=== PATIENT | female | born 1945 | race Caucasian/White ===

== ENCOUNTER 2023-08-19 21:29 | Inpatient (IN) ==
[2023-08-19 22:36] LABS: Basophils # (auto) 0.05 K/uL (0.00-0.20); Basophils % (auto) 0.7 %; Eosinophils # (auto) 0.17 K/uL (0.00-0.50); Eosinophils % (auto) 2.2 %; Hematocrit (blood only) 43.2 % (37.0-47.0); Hemoglobin 14.1 g/dl (12.0-16.0); Immature Granulocytes # (auto) 0.02 K/uL (0.01-0.20); Immature Granulocytes % (auto) 0.3 %; Lymphocytes # (auto) 2.59 K/uL (1.20-3.40); Lymphocytes % (auto) 33.9 %; Mean Corpuscular Hemoglobin 31.6 pg (25.0-34.0); Mean Corpuscular Hgb Conc 32.6 g/dL (32.0-36.0); Mean Corpuscular Volume 96.9 fL (80.0-100.0); Mean Platelet Volume 11.2 fL (9.4-12.4); Monocytes # (auto) 0.44 K/uL (0.11-0.59); Monocytes % (auto) 5.8 %; Neutrophils # (auto) 4.36 K/uL (1.40-6.50); Neutrophils % (auto) 57.1 %; Platelet Count 229 K/uL (130-400); RDW Coefficient of Variation 14.1 % (11.5-14.5); RDW Standard Deviation 49.5 fL (36.4-46.3); Red Blood Count 4.46 M/uL (4.20-5.40); White Blood Count 7.63 K/ul (4.8-10.8)
[2023-08-19] MEDS: ONDANSETRON INJ 2 MG/ML 2 ML VIAL IV STA (22:37)
[2023-08-19 22:39] LABS: Albumin Globulin Ratio 1.7 (0.9-2); Albumin Level 4.4 gm/dl (3.4-5.0); BUN Creatinine Ratio 29.4 (10-20); Bilirubin,Total 0.3 mg/dl (0.2-1.0); Calcium 9.5 mg/dl (8.6-10.3); Creatinine Clr Calc Pharmacy 62.8 ml/min; Est GFR (African American) 95.8 ml/min; Est GFR (Non-African American) 82.6 ml/min; Globulin 2.6 gm/dl (2.5-4.0); Potassium 4.4 mmol/L (3.5-5.1)
[2023-08-19 22:57] LABS: Appearance Urine Cloudy (Clear); Bacteria Urine Automated 4+ (None Seen); Bilirubin Urine Negative (Negative); Blood Urine 1+ (Negative); Cast Urine Automated 0-2 /lpf (0-2); Color Urine Yellow; Epithelial Cell Urine Auto 0-2 /hpf (0-2); Glucose Urine UA Negative (Negative); Ketones Urine Negative (Negative); Leukocyte Esterase Urine Trace (Negative); Nitrite Urine Positive (Negative); Protein Urine Negative (Negative); RBC Urine Automated 0-2 /hpf (0-2); Specific Gravity Urine 1.022 (1.000-1.030); Urobilinogen Urine Negative (Negative); WBC Urine Automated 0-5 /hpf (0-5); pH Urine 5.5 (4.5-7.5)
[2023-08-19] MEDS: HYDROmorphone INJ 0.5 MG/0.5 ML SYR IV STA (23:27)
--- NOTE | 2023-08-19 23:29 | Emergency Department Note ---
Impression & Plan Acute cholecystitis, UTI (urinary tract infection) Admit to the [facility] and consult surgery ED Provider Note NAME: EMMA CAMPOS AGE: 78 SEX: Female INFORMANT: Patient ED PROVIDER(S): Mireya Reeves DO CHIEF COMPLAINT: Abdominal pain PLAN: Disposition: Admit to the [facility] MEDICAL DECISION MAKING: This is an 78-year-old female patient who is visiting the area for graduation who presents to the emergency department with a 1 hour history of right upper quadrant abdominal pain and flank pain associated with nausea. The patient has been having urinary symptoms for the past 5 days prior to coming to [facility] for family members graduation. She did not want to start antibiotics for UTI for fear of having the side effects of diarrhea. The right upper quadrant abdominal pain started just 1 hour before presentation to the ER. Patient has been having some chronic right-sided back pain over the past couple weeks for which she was scheduled to have an MRI of her back. Patient does take Xarelto for A-fib. Laboratory studies revealed no leukocytosis or anemia. Renal function and glucose were normal. LFTs were normal. Patient required IV Zofran and Dilaudid initially for pain management. She went on to receive IV Reglan for additional management of significant nausea. Initially patient underwent CT scan of the abdomen/pelvis because she had right upper quadrant pain and back pain. This showed evidence of acute cholelithiasis. Ultrasound of the right upper quadrant confirmed acute cholecystitis. Case was discussed with general surgery and then the [facility] for admission. Care/management discussed with: The patient and her Triage Nursing notes: Reviewed and agree with them. Vital Signs: reviewed and remarkable for hypertension Additional History obtained from: Her Chronic Medical/Social Conditions affecting care: Frequent UTIs; IBS Differential Diagnosis: Pyelonephritis, colitis, ulcerative disease, pancreatitis, cholecystitis Diagnostics, independently interpreted by me: Cardiac Monitoring: Normal sinus rhythm at a rate of 84 Imaging studies: CT scan of the abdomen/pelvis: As per stat rad Right upper quadrant ultrasound: As per stat rad HPI: 78 year old Female arrives for evaluation of right upper quadrant abdominal discomfort. Patient developed some nausea and right upper quadrant abdominal pain with radiation to her right flank. Patient has noticed some urinary symptoms over the past couple of days but otherwise has been in her usual state of health. PAST MEDICAL HISTORY: IBS, A-fib on Xarelto, TIA, UTIs, PAST SURGICAL HISTORY: Hysterectomy, SOCIAL HISTORY: Lives in the [facility] with her , very infrequent alcohol use, no tobacco use HOME MEDICATIONS: See list ALLERGIES: None VITALS: See Below PHYSICAL EXAMINATION: HEENT: Head - normocephalic and atraumatic. Pupils are equal, round, and reactive to light. Extraocular eye muscles are intact, and sclera are anicteric. Nose - moist nasal mucosa without discharge. Mouth - moist buccal mucosa. Oropharynx is nonerythematous and there is no tonsillar exudate or edema noted. Neck: Supple; no JVD, nuchal rigidity, cervical lymphadenopathy. Heart: Regular rate and rhythm. There is a normal S1 and S2 with no murmurs, clicks, or gallops appreciated. Lungs: Clear to auscultation bilaterally with no wheezes, rales, or rhonchi. Abdomen: Soft, mild tenderness to palpation in the right upper quadrant, nondistended, with good bowel sounds. There are no palpable pulsatile masses or hepatosplenomegaly. There is no guarding, rigidity, or rebound noted. Extremities: No evidence of cyanosis, clubbing, or edema. There are easily palpable peripheral pulses. Skin: warm and dry with good turgor and no rashes. Emergency department treatment: store stocker, IV Zofran, IV Dilaudid, IV Reglan, IV Rocephin Emergency department course: The patient was evaluated in room B-5. A complete history and physical was performed. IV lock was initiated and labs were drawn as above per protocol. The patient was given a dose of IV Zofran for nausea. An order was placed for continuous cardiac monitoring. The patient was in a normal sinus rhythm at a rate of 84. She was medicated with IV Dilaudid for the pain in her right upper quadrant. She went for CT scan of the abdomen/pelvis. Patient was medicated with a dose of IV Rocephin for her urinary tract infection. Upon returning from radiology, the patient continued to complain of nausea and was given a dose of IV Reglan. This did relieve some of the nausea. She went on to receive a right upper quadrant ultrasound which confirmed the diagnosis of acute cholecystitis. I spoke with general surgery who evaluated the patient and recommended admission to the hospitalist group Past Med/Surg History Social History Smoking Status: Never smoker Hx Alcohol Use: Yes Alcohol type: wine Hx Substance Use: No Preferred Language: Citizen Of [place] [employer] Press Operator Required: No Beliefs That Will Affect Care: None Current Living Situation: Spouse Other Information That Helps Us Care for You: No Feels Safe at Home: Yes Safety Concerns: Feels Safe At This Time Assistive Devices: Cane and Glasses Allergies Allergies Allergy/AdvReac Type Severity Reaction Status Date / Time No Known Allergies Allergy Unverified 08/20/23 01:42 Home Meds Home Medications Medication Instructions Recorded Confirmed alendronate 70 mg tablet 70 mg PO WK 08/20/23 08/20/23 atorvastatin 10 mg tablet 10 mg PO QAM 08/20/23 08/20/23 cholecalciferol (vitamin D3) 50 100 mcg PO QAM 08/20/23 08/20/23 mcg (2,000 unit) tablet (Vitamin D3) cyanocobalamin (vitamin B-12) 1,000 mcg PO QAM 08/20/23 08/20/23 1,000 mcg tablet (Vitamin B-12) cyclobenzaprine 10 mg tablet 5 - 10 mg PO .NIGHTLY PRN as 08/20/23 08/20/23 directed folic acid 1 mg tablet 1 mg PO QAM 08/20/23 08/20/23 ipratropium bromide 42 mcg (0.06 2 spray intranasal QAM 08/20/23 08/20/23 %) nasal spray melatonin 1 mg tablet 1 mg PO HS 08/20/23 08/20/23 methotrexate sodium 2.5 mg tablet 15 mg PO WK 08/20/23 08/20/23 prednisolone acetate 1 % eye 1 drp ophthalmic (eye) Q OTHER DAY 08/20/23 08/20/23 drops,suspension primidone 250 mg tablet 250 mg PO QPM 08/20/23 08/20/23 primidone 50 mg tablet 50 mg PO QAM 08/20/23 08/20/23 propranolol 80 mg capsule,24 80 mg PO QAM 08/20/23 08/20/23 hr,extended release rivaroxaban 20 mg tablet (Xarelto) 20 mg PO QPM 08/20/23 08/20/23 sertraline 100 mg tablet 100 mg PO QAM 08/20/23 08/20/23 Results & Data (ED) Vital Signs Vital Signs - 24 hr 08/19/23 23:40 08/19/23 23:49 08/19/23 23:50 Pulse Rate 79 Pulse Rate [Left Apical] 78 Pulse Rate from SpO2 Sensor 80 Respiratory Rate 23 14 Blood Pressure Blood Pressure [Right Arm] 171/92 H Blood Pressure Mean Blood Pressure Mean [Right Arm] 118 Pulse Oximetry 88 L 97 97 Oxygen Delivery Method Nasal Cannula Oxygen Flow Rate 0 2 Oxygen Flow Rate - Titration 2 Pulse Oximetry Post Tiitration 96 08/19/23 23:50 08/20/23 00:00 08/20/23 00:00 Pulse Rate 80 Pulse Rate [Left Apical] Pulse Rate from SpO2 Sensor Respiratory Rate 16 Blood Pressure 171/92 H 166/107 H Blood Pressure [Right Arm] Blood Pressure Mean 131 138 Blood Pressure Mean [Right Arm] Pulse Oximetry Oxygen Delivery Method Oxygen Flow Rate Oxygen Flow Rate - Titration Pulse Oximetry Post Tiitration 08/20/23 01:09 08/20/23 01:49 08/20/23 02:34 Pulse Rate 77 86 Pulse Rate [Left Apical] 82 Pulse Rate from SpO2 Sensor Respiratory Rate 16 17 Blood Pressure Blood Pressure [Right Arm] 177/112 H Blood Pressure Mean Blood Pressure Mean [Right Arm] 133 Pulse Oximetry 91 Oxygen Delivery Method Room Air Oxygen Flow Rate Oxygen Flow Rate - Titration Pulse Oximetry Post Tiitration 08/20/23 02:35 08/20/23 02:35 08/20/23 02:35 Pulse Rate 81 Pulse Rate [Left Apical] 81 Pulse Rate from SpO2 Sensor 81 Respiratory Rate 14 14 Blood Pressure 162/89 H Blood Pressure [Right Arm] 162/89 H Blood Pressure Mean 105 Blood Pressure Mean [Right Arm] 113 Pulse Oximetry 91 94 Oxygen Delivery Method Room Air Oxygen Flow Rate Oxygen Flow Rate - Titration Pulse Oximetry Post Tiitration 08/20/23 04:04 08/20/23 04:07 08/20/23 04:07 Pulse Rate 90 Pulse Rate [Left Apical] 89 Pulse Rate from SpO2 Sensor 91 H Respiratory Rate 19 20 Blood Pressure 161/85 H Blood Pressure [Right Arm] 161/85 H Blood Pressure Mean 111 Blood Pressure Mean [Right Arm] 110 Pulse Oximetry 97 95 Oxygen Delivery Method Room Air Oxygen Flow Rate Oxygen Flow Rate - Titration Pulse Oximetry Post Tiitration 08/20/23 04:07 Pulse Rate 89 Pulse Rate [Left Apical] Pulse Rate from SpO2 Sensor 89 Respiratory Rate 15 Blood Pressure Blood Pressure [Right Arm] Blood Pressure Mean Blood Pressure Mean [Right Arm] Pulse Oximetry 94 Oxygen Delivery Method Oxygen Flow Rate Oxygen Flow Rate - Titration Pulse Oximetry Post Tiitration Laboratory Data 08/20/23 05:51 08/20/23 05:51 Lab Results 08/19/23 08/19/23 Range/Units 21:47 21:58 WBC 7.63 (4.8-10.8) K/ul RBC 4.46 (4.20-5.40) M/uL Hgb 14.1 (12.0-16.0) g/dl Hct 43.2 (37.0-47.0) % MCV 96.9 (80.0-100.0) fL MCH 31.6 (25.0-34.0) pg MCHC 32.6 (32.0-36.0) g/dL RDW Std Deviation 49.5 H (36.4-46.3) fL RDW Coeff of Mega 14.1 (11.5-14.5) % Plt Count 229 (130-400) K/uL MPV 11.2 (9.4-12.4) fL Immature Gran % (Auto) 0.3 % Neut % (Auto) 57.1 % Lymph % (Auto) 33.9 % [place] % (Auto) 5.8 % Eos % (Auto) 2.2 % Baso % (Auto) 0.7 % Neut # (Auto) 4.36 (1.40-6.50) K/uL Lymph # (Auto) 2.59 (1.20-3.40) K/uL [place] # (Auto) 0.44 (0.11-0.59) K/uL Eos # (Auto) 0.17 (0.00-0.50) K/uL Baso # (Auto) 0.05 (0.00-0.20) K/uL Immature Gran # (Auto) 0.02 (0.01-0.20) K/uL Sodium 142 (136-145) mmol/L Potassium 4.4 (3.5-5.1) mmol/L Chloride 106 (98-107) mmol/L Carbon Dioxide 28 (21-32) mmol/L Anion Gap 8 (3-11) BUN 20 (6-23) mg/dl Creatinine 0.68 (0.6-1.2) mg/dl Est Cr Clr Drug Dosing 62.8 ml/min Est GFR ( Amer) 95.8 ml/min Est GFR (Non-Af Amer) 82.6 ml/min BUN/Creatinine Ratio 29.4 H (10-20) Glucose 96 (70-99(Fasting)) mg/dl Calcium 9.5 (8.6-10.3) mg/dl Total Bilirubin 0.3 (0.2-1.0) mg/dl AST 14 (13-39) U/L ALT 11 (7-52) U/L Alkaline Phosphatase 60 (34-104) U/L Total Protein 7.0 (6.0-8.3) gm/dl Albumin 4.4 (3.4-5.0) gm/dl Globulin 2.6 (2.5-4.0) gm/dl Albumin/Globulin Ratio 1.7 (0.9-2) Lipase 24 (11-82) U/L Urine Color Yellow Urine Appearance Cloudy A (Clear) Urine pH 5.5 (4.5-7.5) Ur Specific [place] 1.022 (1.000-1.030) Urine Protein Negative (Negative) Urine Glucose (UA) Negative (Negative) Urine Ketones Negative (Negative) Urine Blood 1+ H (Negative) Urine Nitrite Positive A (Negative) Urine Bilirubin Negative (Negative) Urine Urobilinogen Negative (Negative) Ur Leukocyte Esterase Trace H (Negative) Urine WBC (Auto) 0-5 (0-5) /hpf Urine RBC (Auto) 0-2 (0-2) /hpf U Hyaline Cast (Auto) 0-2 (0-2) /lpf U Epithel Cells (Auto) 0-2 (0-2) /hpf Urine Bacteria (Auto) 4+ H (None Seen) Administered Medications Hydromorphone HCl (Hydromorphone Inj 0.5 Mg/0.5 Ml Syr) 0.5 mg IV Q3H PRN PRN Reason: Pain (6,7,8,9,10) Stop: 09/03/23 05:18 Last Admin: 08/20/23 10:42 Dose: 0.5 mg Documented By: SWD Sodium Chloride (Nss) 1,000 mls @ 125 mls/hr IV .Q8H PJ Stop: 09/19/23 04:44 Last Admin: 08/20/23 17:22 Dose: 125 mls/hr Documented By: Admin: 08/20/23 17:09 Dose: Not Given Documented By: Infusion: 08/20/23 17:09 Dose: Infused Documented By: Admin: 08/20/23 05:06 Dose: 125 mls/hr Documented By: GUNJAN Acetaminophen ([facility]) 1,000 mg in 100 mls @ 400 mls/hr IV Q8H PJ Stop: 08/23/23 17:59 Last Infusion: 08/20/23 17:40 Dose: Infused Documented By: Admin: 08/20/23 17:22 Dose: 400 mls/hr Documented By: ANDREW Oxycodone HCl (Oxycodone Hcl Ir 5 Mg Tab (Immediate Release)) 5 mg PO Q6 PRN PRN Reason: Pain Stop: 09/03/23 17:02 Last Admin: 08/20/23 19:37 Dose: 5 mg Documented By: FERNANDA Discontinued Medications Bupivacaine HCl/Epinephrine Bitart (Bupivacaine/Epinephrine 0.5% Mpf 1:200,000 30 Ml Vial) Confirm Administered Dose 30 ml .ROUTE .STK-MED ONE Stop: 08/20/23 12:16 Last Admin: 08/20/23 15:21 Dose: 30 ml Documented By: ALIYA Hydromorphone HCl (Hydromorphone Inj 0.5 Mg/0.5 Ml Syr) 0.5 mg IV NOW STA Stop: 08/19/23 23:20 Last Admin: 08/19/23 23:27 Dose: 0.5 mg Documented By: GUNJAN Ceftriaxone Sodium (Rocephin) 1,000 mg in 50 mls @ 100 mls/hr IV NOW STA Stop: 08/20/23 04:57 Last Infusion: 08/20/23 05:42 Dose: Infused Documented By: Admin: 08/20/23 05:06 Dose: 100 mls/hr Documented By: GUNJAN Acetaminophen ([facility]) 1,000 mg in 100 mls @ 400 mls/hr IV NOW STA Stop: 08/20/23 06:28 Last Infusion: 08/20/23 06:46 Dose: Infused Documented By: Admin: 08/20/23 06:31 Dose: 400 mls/hr Documented By: RENETTA Cefazolin Sodium (Ancef 2000mg) 2,000 mg in 15 mls @ 3.75 mls/min IV ONCE ONE; Protocol Stop: 08/20/23 15:22 Last Admin: 08/20/23 15:05 Dose: 3.75 mls/min Documented By: [id number] Ioversol (Optiray 320 100ml) 94 ml IV ONCE ONE Stop: 08/19/23 23:35 Last Admin: 08/19/23 23:34 Dose: 94 ml Documented By: IFTIKHAR Metoclopramide HCl (Metoclopramide Hcl Inj 5 Mg/Ml 2 Ml Vial) 5 mg IV ONE ONE Stop: 08/20/23 02:52 Last Admin: 08/20/23 03:02 Dose: 5 mg Documented By: GUNJAN Ondansetron HCl (Ondansetron Inj 2 Mg/Ml 2 Ml Vial) 4 mg IV NOW STA Stop: 08/19/23 22:34 Last Admin: 08/19/23 22:37 Dose: 4 mg Documented By: STEVO Ondansetron HCl (Ondansetron Inj 2 Mg/Ml 2 Ml Vial) 4 mg IV NOW STA Stop: 08/20/23 01:00 Last Admin: 08/20/23 01:04 Dose: 4 mg Documented By: GUNJAN Discharge Plan Visit Data Chief Complaint: Abdominal Pain Stated Complaint: ABD PAIN ED Provider: Mireya Reeves Discharge Problem: Acute cholecystitis, UTI (urinary tract infection) Patient Disposition: Admitted As Inpatient Discharge Instructions Interventions: ED Discharge Assessment Last Done: 08/20/23 14:17 Discharge Problem: UTI (urinary tract infection) Qualifiers: Urinary tract infection type: site unspecified
[2023-08-19] MEDS: OPTIRAY 320 100ml IV ONE (23:34)
[2023-08-20] MEDS: ONDANSETRON INJ 2 MG/ML 2 ML VIAL IV STA (01:04)
--- NOTE | 2023-08-20 01:15 | CT Scan Report ---
Exam(s): CT ABDOMEN + PELVIS With Contrast IV Amt: 94ml opti 320 EXAM: CT Abdomen and Pelvis With Intravenous Contrast CLINICAL HISTORY: Reason for exam: eval for R pyelo and choley. TECHNIQUE: Axial computed tomography images of the abdomen and pelvis with intravenous contrast. Automated exposure control was utilized for the study. A dose lowering technique was utilized adhering to the principles of ALARA. CONTRAST: Patient received 94ml opti 320 of IV contrast COMPARISON: No relevant prior studies available. FINDINGS: Lung bases: Unremarkable. No mass. No consolidation. Heart: Cardiomegaly. ABDOMEN: Liver: Unremarkable. No mass. Gallbladder and bile ducts: Cholelithiasis. No ductal dilation. Pancreas: Unremarkable. No mass. No ductal dilation. Spleen: Unremarkable. No splenomegaly. Adrenals: Unremarkable. No mass. Kidneys and ureters: Unremarkable. No hydronephrosis or delayed nephrogram. Stomach and bowel: Diverticulosis, without acute diverticulitis. No small bowel obstruction. No free intraperitoneal air. PELVIS: Appendix: No findings to suggest acute appendicitis. Bladder: Decompressed urinary bladder. Reproductive: Unremarkable as visualized. ABDOMEN and PELVIS: Intraperitoneal space: Unremarkable. No free air. No significant fluid collection. Bones/joints: Degenerative changes of the spine. Lumbosacral fusion hardware at L4-S1. No acute fracture. No dislocation. Soft tissues: Unremarkable. Vasculature: Atherosclerotic changes of the aorta. No abdominal aortic aneurysm. Lymph nodes: Unremarkable. No enlarged lymph nodes. IMPRESSION: 1. No hydronephrosis or delayed nephrogram. 2. Cholelithiasis. 3. Diverticulosis, without acute diverticulitis. No small bowel obstruction. No free intraperitoneal air. Electronically signed by: Rickie Sutherland MD 08/20/23 01:14 AM
[2023-08-20] MEDS: METOCLOPRAMIDE HCL INJ 5 MG/ML 2 ML VIAL IV ONE (03:02)
--- NOTE | 2023-08-20 03:35 | Ultrasound Report ---
Exam(s): US GALLBLADDER EXAM: US Abdomen Limited, Gallbladder CLINICAL HISTORY: Reason for exam: RUQ pain. TECHNIQUE: Real-time ultrasound of the right upper quadrant with image documentation. COMPARISON: No relevant prior studies available. FINDINGS: Gallbladder: . Cholelithiasis with a gallstone in the gallbladder neck. Trace pericholecystic fluid. Gallbladder wall measures 2.6 mm. Common bile duct measures 8 mm which is within normal limits. Common bile duct: Unremarkable as visualized. No stones. No dilation. Pancreas: Unremarkable as visualized. IMPRESSION: Acute cholecystitis Electronically signed by: Charles Bryant MD 08/20/23 03:34 AM
--- NOTE | 2023-08-20 04:05 | Surgery Consultation ---
Date of Consultation August 20, 2023 Assessment & Plan (1) Acute cholecystitis: I discussed with the treating emergency room physician and the patient is being admitted on the hospitalist service. From surgery perspective we recommend proceeding as follows: Provide analgesics Provide antiemetics Provide IV fluid for hydration Initiate antibioticsthe treating physician in the emergency department has ordered Rocephin which should continue We will repeat laboratories this morning Hold patient's Xarelto in anticipation of required surgery We will check a preoperative chest x-ray Will keep the patient n.p.o. for the present time. I feel she would likely require cholecystectomy however the timing will be dependent on Dr. Dubon's review of this case as the patient does take Xarelto and would be preferable for her to be off this medication for several days to minimize the potential of s urgical bleeding Addendum: The preoperative chest x-ray was performed. This did not appear to demonstrate any evidence of pneumonia. as above. pt's pain under control. xarelto will be 48 hours off later today. discussed options/risks ( bleeding/infection/injury to other organs/bile duct injury or leak/dvt/pe/mi/cva etc...) questions answered. will proceed later today with jackie carson History of Present Illness Reason for Consultation: Cholecystitis History of Present Illness This is an 78-year-old female who is from the [place] area. She is in [place] for college graduation. On the evening of 08/20/2023 the patient developed right upper quadrant abdominal pain with radiation to her flank. She had some associated nausea and vomiting. She denies any fevers, shakes, or chills. She does not report any modifying factors to her pain. She notes that she has had prior abdominal surgery in the form of an open hysterectomy. The patient has additional medical problems including atrial fibrillation for which she takes Xarelto. Her most recent dose was her p.m. dose of Xarelto on 08/18/2023. In addition, the patient suffered a TIA "a few years ago" at which time she had difficulty speaking. She said that her symptoms lasted less than 24 hours and she has made a full recovery. In addition, the patient notes that she is currently being treated for urinary tract infection. At the present time she does not have any dysuria. She does note that she tends to get diarrhea when antibiotics are administered for such problems. Since arrival to the hospital the patient has had labs and imaging which I independently reviewed. Patient had a CT scan of the abdomen and pelvis. This study showed the patient had cholelithiasis with no biliary ductal dilatation. On this study it did not appear the patient had acute cholecystitis. There is no free intraperitoneal air noted there is no evidence of diverticulitis. There is no evidence of small bowel obstruction. No hydronephrosis was noted. This was followed up with a gallbladder ultrasound where patient was noted to have cholelithiasis with a gallstone in the gallbladder neck. There is trace pericholecystic fluid. Gallbladder wall was 2.6 mm in thickness. The common bile duct appeared to be normal without any evidence of choledocholithiasis. The interpreting radiologist felt that this represented acute cholecystitis. Labs included CBC were white blood cell count, hemoglobin, hematocrit, and platelet count were normal. Chemistry profile showed sodium and potassium along with the BUN and creatinine were normal. The patient's bilirubin, transaminases, alkaline phosphatase, and lipase were all normal. Patient did have a urinalysis which was positive for nitrites and had trace leukocyte Estrace along with 4+ bacteria. There is no pyuria on the study. Patient did have an EKG that showed normal sinus rhythm. There did not appear to be any changes indicative of acute ischemia. Concerning past medical history the patient is treated for atrial fibrillation and has a history of TIA as noted above. In addition the patient has chronic back pain and irritable bowel syndrome. Concerning past surgical history the patient has had an open hysterectomy as well as back surgery Concerning social history the patient does not smoke At the time of my interview the patient was resting comfortably in bed and she was in no distress. Allergies Allergy/AdvReac Type Severity Reaction Status Date / Time No Known Allergies Allergy Unverified 08/20/23 01:42 Home Medications Medication Instructions Recorded Confirmed Type alendronate 70 mg tablet 70 mg PO WK 08/20/23 08/20/23 History atorvastatin 10 mg tablet 10 mg PO QAM 08/20/23 08/20/23 History cholecalciferol (vitamin D3) 50 100 mcg PO QAM 08/20/23 08/20/23 History mcg (2,000 unit) tablet (Vitamin D3) cyanocobalamin (vitamin B-12) 1,000 mcg PO QAM 08/20/23 08/20/23 History 1,000 mcg tablet (Vitamin B-12) cyclobenzaprine 10 mg tablet 5 - 10 mg PO .NIGHTLY PRN as 08/20/23 08/20/23 History directed folic acid 1 mg tablet 1 mg PO QAM 08/20/23 08/20/23 History ipratropium bromide 42 mcg (0.06 2 spray intranasal QAM 08/20/23 08/20/23 History %) nasal spray melatonin 1 mg tablet 1 mg PO HS 08/20/23 08/20/23 History methotrexate sodium 2.5 mg tablet 15 mg PO WK 08/20/23 08/20/23 History prednisolone acetate 1 % eye 1 drp ophthalmic (eye) Q OTHER DAY 08/20/23 08/20/23 History drops,suspension primidone 250 mg tablet 250 mg PO QPM 08/20/23 08/20/23 History primidone 50 mg tablet 50 mg PO QAM 08/20/23 08/20/23 History propranolol 80 mg capsule,24 80 mg PO QAM 08/20/23 08/20/23 History hr,extended release rivaroxaban 20 mg tablet (Xarelto) 20 mg PO QPM 08/20/23 08/20/23 History sertraline 100 mg tablet 100 mg PO QAM 08/20/23 08/20/23 History Patient History Social History Smoking Status: Never smoker Hx Alcohol Use: Yes Alcohol type: wine Hx Substance Use: No Preferred Language: Rw[place]an Food Preparation Supervisor Required: No Beliefs That Will Affect Care: None Current Living Situation: Spouse Other Information That Helps Us Care for You: No Feels Safe at Home: Yes Safety Concerns: Feels Safe At This Time Assistive Devices: Cane and Glasses Review of Systems Constitutional: no fever and no chills Ear, Nose, Mouth, Throat: no ear pain Respiratory: no cough and no dyspnea Cardiovascular: no chest pain Gastrointestinal: as per Subjective / HPI Genitourinary: as per Subjective / HPI Musculoskeletal: + back pain (Chronic) Integumentary: no rash Neurologic: no localized weakness Physical Exam Constitutional: WD/WN, vitals as above Eyes: + anicteric sclerae; no conjunctival abn ormality ENMT: Ears: no hearing impairment and no external ear abnormality Mouth: no oropharynx abnormality Neck: trachea midline Respiratory: normal respiratory effort, lungs clear to auscultation Cardiovascular: Rate/Rhythm: regular rate and regular rhythm Heart Sounds: + murmur Gastrointestinal (Abdomen): Abdomen is soft and nonrigid. Bowel sounds are present. There is no rebound tenderness or guarding but patient did have pain with palpation in the right upper quadrant. Musculoskeletal: No calf tenderness Skin: no rashes Neurologic: moves all extremities Psychiatric: A+Ox3, euthymic affect Results & Data Vital Signs (Past 12 Hours) Vital Signs Temp Pulse Pulse Resp BP BP BP 08/20/23 02:35 81 14 162/89 H 08/20/23 01:49 77 08/20/23 01:09 82 16 177/112 H 08/19/23 23:50 78 14 171/92 H 08/19/23 23:40 08/19/23 23:00 84 14 182/85 H 08/19/23 22:31 84 23 205/98 H 08/19/23 21:47 77 08/19/23 21:45 82 20 217/115 H 08/19/23 21:32 36.4 C L 73 18 208/96 H Pulse Ox O2 Del Method O2 Flow Rate 08/20/23 02:35 91 Room Air 08/20/23 01:49 08/20/23 01:09 91 Room Air 08/19/23 23:50 97 Nasal Cannula 2 08/19/23 23:40 88 L 0 08/19/23 23:00 92 Room Air 08/19/23 22:31 96 Room Air 08/19/23 21:47 08/19/23 21:45 95 Room Air 08/19/23 21:32 98 Room Air PG Care Time/CCT Total # of Minutes Spent Total Time Spent with Patient: Total time spent is greater than 50% in coordination of care (as documented) at patient's floor/unit and/or counseling patient: Coding Level of Care Code 26668 INT INP/OBS CARE 75MIN Diagnoses Acute cholecystitis K81.0
--- NOTE | 2023-08-20 04:07 | History & Physical Report ---
Date of Service August 20, 2023 Assessment & Plan (1) Acute cholecystitis: Plan: -CBC, CMP, lipase, and bilirubin are all within normal limits. -CT abdomen showed cholelithiasis, right upper quadrant ultrasound showed acute cholecystitis. -Surgery consulted, will keep patient n.p.o. and Dr. Dubon will review case to see timing of cholecystectomy. -Dilaudid as needed for pain. -Ceftriaxone continued. -Antiemetics as needed -NSS at 125 mL an hour -Labs in the a.m. (2) UTI (urinary tract infection): Plan: -UA showing nitrates, leukocyte Estrace, and 4+ bacteria. -No current symptoms of UTI, though is on ceftriaxone as above for acute cholecystitis. (3) A-fib: Plan: -Hold Xarelto. -Will monitor on telemetry. (4) History of TIA (transient ischemic attack): Plan: -Holding home statin. (5) History of lumbar fusion: Plan: -Noted. She was supposed to have a MRI on Monday. (6) Essential tremor: Plan: -Holding home medications in anticipation of surgery. Plan Fluids: NSS @ 125ml/hr Nutrition: NPO Code status: Conditional DVT ppx: SCDs, holding home Xarelto Consults: Surgery Dispo: Telemetry History of Present Illness Chief Complaint: Acute cholecystitis Primary Care Provider: NO PCP Patient is an 78-year-old female from the [facility] who presents to the hospital with acute cholecystitis. Patient has a past medical history of A-fib on Xarelto, TIA, essential tremor, hysterectomy, lumbar fusion surgery. She came to the area for graduation. She states that she felt crummy last couple days and that Monday evening at 8 PM she started to have sharp right upper quadrant abdominal pain that radiated to her back. She also started to have some nausea. She vomited once in the ED. She denies any fevers, chills, or recent illness. Denies any dysuria. Her most recent dose of Xarelto was in the p.m. on 08/18/2023. In the ED: CBC, CMP, and lipase were all benign. UA showed nitrates, leukocyte esterase, and 4+ bacteria. CT abdomen pelvis showed cholelithiasis and diverticulosis without acute diverticulitis. Right upper quadrant ultrasound showed acute cholecystitis. Surgery was consulted, will evaluate for possible cholecystectomy this admission. Allergies Allergy/AdvReac Type Severity Reaction Status Date / Time No Known Allergies Allergy Unverified 08/20/23 01:42 Home Medications Medication Instructions Recorded Confirmed Type alendronate 70 mg tablet 70 mg PO WK 08/20/23 08/20/23 History atorvastatin 10 mg tablet 10 mg PO QAM 08/20/23 08/20/23 History cholecalciferol (vitamin D3) 50 100 mcg PO QAM 08/20/23 08/20/23 History mcg (2,000 unit) tablet (Vitamin D3) cyanocobalamin (vitamin B-12) 1,000 mcg PO QAM 08/20/23 08/20/23 History 1,000 mcg tablet (Vitamin B-12) cyclobenzaprine 10 mg tablet 5 - 10 mg PO .NIGHTLY PRN as 08/20/23 08/20/23 History directed folic acid 1 mg tablet 1 mg PO QAM 08/20/23 08/20/23 History ipratropium bromide 42 mcg (0.06 2 spray intranasal QAM 08/20/23 08/20/23 History %) nasal spray melatonin 1 mg tablet 1 mg PO HS 08/20/23 08/20/23 History methotrexate sodium 2.5 mg tablet 15 mg PO WK 08/20/23 08/20/23 History prednisolone acetate 1 % eye 1 drp ophthalmic (eye) Q OTHER DAY 08/20/23 08/20/23 History drops,suspension primidone 250 mg tablet 250 mg PO QPM 08/20/23 08/20/23 History primidone 50 mg tablet 50 mg PO QAM 08/20/23 08/20/23 History propranolol 80 mg capsule,24 80 mg PO QAM 08/20/23 08/20/23 History hr,extended release rivaroxaban 20 mg tablet (Xarelto) 20 mg PO QPM 08/20/23 08/20/23 History sertraline 100 mg tablet 100 mg PO QAM 08/20/23 08/20/23 History Past Med/Surg History Social History Smoking Status: Never smoker Hx Alcohol Use: Yes Alcohol type: wine Hx Substance Use: No Preferred Language: Grenadian Supervisor [employer] Required: No Beliefs That Will Affect Care: None Current Living Situation: Spouse Other Information That Helps Us Care for You: No Feels Safe at Home: Yes Safety Concerns: Feels Safe At This Time Assistive Devices: Cane and Glasses Review of Systems Review of Systems: All systems reviewed & are unremarkable except as noted in Subjective Physical Exam Physical Exam: Constitutional: well-appearing, no acute distress HEENT: NCAT, no conjunctival injection CV: regular rhythm, no murmur appreciated, extremities well-perfused, no LE edema Resp: CTABL, no wheezes/rales/rhonchi appreciated, no increased work of breathing GI: Soft, nondistended, right upper quadrant tenderness MSK: no gross deformities appreciated Skin: warm, dry, no rash appreciated Neuro: alert, oriented, no focal neurologic deficit appreciated Results & Data Results & Data Vital Signs (Past 12 Hours) Vital Signs Temp Pulse Pulse Resp BP BP BP 08/20/23 02:35 81 14 162/89 H 08/20/23 01:49 77 08/20/23 01:09 82 16 177/112 H 08/19/23 23:50 78 14 171/92 H 08/19/23 23:40 08/19/23 23:00 84 14 182/85 H 08/19/23 22:31 84 23 205/98 H 08/19/23 21:47 77 08/19/23 21:45 82 20 217/115 H 08/19/23 21:32 36.4 C L 73 18 208/96 H Pulse Ox O2 Del Method O2 Flow Rate 08/20/23 02:35 91 Room Air 08/20/23 01:49 08/20/23 01:09 91 Room Air 08/19/23 23:50 97 Nasal Cannula 2 08/19/23 23:40 88 L 0 08/19/23 23:00 92 Room Air 08/19/23 22:31 96 Room Air 08/19/23 21:47 08/19/23 21:45 95 Room Air 08/19/23 21:32 98 Room Air Supervising Physician Co-Signing Physician Notes Attending addendum: I have physically seen this patient, have supervised the medical residents activities, and agree with the H&P unless as otherwise noted. Assessment and Plan: Acute cholecystitis- Labs are within normal limits, however, CT scan and history are consistent with acute cholecystitis Surgery has seen the patient, and will likely undergo surgery later on the day today Last dose of Xarelto has been about 36 hours at this point If surgery is delayed, patient will need to go on heparin drip as a bridge Ceftriaxone 2 g IV daily Zofran 4 mg IV every 6 hours as needed NSS at 125 MLS per hour Urinary tract infection- Patient has had symptoms for about a week Follow urine culture and sensitivity Ceftriaxone IV as noted above Atrial fibrillation- Xarelto last dosing as noted above about 36 hours ago If surgery is delayed, patient will be placed on a heparin drip. Essential tremor- Resume propranolol postop Remaining orders and notations as noted
[2023-08-20] MEDS: cefTRIAXone SODIUM 1,000 MG/50 ML BAG IV STA (05:06)
[2023-08-20] MEDS: SODIUM CHLORIDE 0.9% 1,000 ML IV SCH (05:06)
[2023-08-20] MEDS ORDERED: METOCLOPRAMIDE HCL INJ 5 MG/ML 2 ML VIAL IV PRN (05:19)
[2023-08-20 06:30] LABS: Basophils # (auto) 0.04 K/uL (0.00-0.20); Basophils % (auto) 0.3 %; Eosinophils # (auto) 0.02 K/uL (0.00-0.50); Eosinophils % (auto) 0.2 %; Hematocrit (blood only) 42.6 % (37.0-47.0); Hemoglobin 14.1 g/dl (12.0-16.0); Immature Granulocytes # (auto) 0.06 K/uL (0.01-0.20); Immature Granulocytes % (auto) 0.5 %; Lymphocytes # (auto) 1.74 K/uL (1.20-3.40); Lymphocytes % (auto) 14.6 %; Mean Corpuscular Hemoglobin 31.5 pg (25.0-34.0); Mean Corpuscular Hgb Conc 33.1 g/dL (32.0-36.0); Mean Corpuscular Volume 95.3 fL (80.0-100.0); Mean Platelet Volume 10.7 fL (9.4-12.4); Monocytes # (auto) 0.54 K/uL (0.11-0.59); Monocytes % (auto) 4.5 %; Neutrophils # (auto) 9.53 K/uL (1.40-6.50); Neutrophils % (auto) 79.9 %; Platelet Count 237 K/uL (130-400); RDW Coefficient of Variation 13.8 % (11.5-14.5); RDW Standard Deviation 48.5 fL (36.4-46.3); Red Blood Count 4.47 M/uL (4.20-5.40); White Blood Count 11.93 K/ul (4.8-10.8)
[2023-08-20 06:31] LABS: Partial Thromboplastin Ratio 1.1; Partial Thromboplastin Time 30 Seconds (21-31); Prothrombin Time 10.9 Seconds (9.0-12.0)
[2023-08-20] MEDS: ACETAMINOPHEN 1,000 MG/100 ML VIAL IV STA (06:31)
[2023-08-20 06:41] LABS: Albumin Globulin Ratio 1.8 (0.9-2); Albumin Level 4.4 gm/dl (3.4-5.0); BUN Creatinine Ratio 24.6 (10-20); Bilirubin,Total 0.4 mg/dl (0.2-1.0); Creatinine Clr Calc Pharmacy 74.9 ml/min; Est GFR (African American) 101.5 ml/min; Est GFR (Non-African American) 87.6 ml/min; Globulin 2.5 gm/dl (2.5-4.0); Potassium 3.9 mmol/L (3.5-5.1); Total Protein 6.9 gm/dl (6.0-8.3)
--- NOTE | 2023-08-20 07:51 | XRay Report ---
XR chest 1V portable HISTORY: pre-op COMPARISON: None. FINDINGS: The lungs are clear. Cardiac silhouette is normal in size. No pleural effusions. No pneumot horax. IMPRESSION: No acute process. ACT 112: Negative or not required by law. Electronically signed by: Julien Fortune M.D. 08/20/2023 7:50 AM
[2023-08-20] MEDS: HYDROmorphone INJ 0.5 MG/0.5 ML SYR IV PRN (10:42)
--- NOTE | 2023-08-20 14:26 | Anesthesiology Consultation ---
Date of Service August 20, 2023 Assessment & Plan Chart Review Chart Review: Acceptable Risk for Surgery and Patient NOT seen in Pre Admission Testing Consults Requested none ASA ASA2 Proposed Anesthesia Anesthesia Type: General Risk / Benefits Reviewed With: PT / POA / Parent / Guardian, Accepts Plan and Informed Consent Obtained History Surgery Operation Date: 08/20/23 12:00 Proposed Procedures p Laparoscopic Cholecystectomy - Jeffry Dubon, DO Height/Weight Height: 5 ft 3 in Weight: 72.1 kg Allergies Allergy/AdvReac Type Severity Reaction Status Date / Time No Known Allergies Allergy Unverified 08/20/23 01:42 Medications Home Medications Medication Instructions Recorded Confirmed Last Taken alendronate 70 mg tablet 70 mg PO WK 08/20/23 08/20/23 08/13/23 atorvastatin 10 mg tablet 10 mg PO QAM 08/20/23 08/20/23 08/18/23 cholecalciferol (vitamin D3) 50 100 mcg PO QAM 08/20/23 08/20/23 08/18/23 mcg (2,000 unit) tablet (Vitamin D3) cyanocobalamin (vitamin B-12) 1,000 mcg PO QAM 08/20/23 08/20/23 08/18/23 1,000 mcg tablet (Vitamin B-12) cyclobenzaprine 10 mg tablet 5 - 10 mg PO .NIGHTLY PRN as 08/20/23 08/20/23 Unknown directed folic acid 1 mg tablet 1 mg PO QAM 08/20/23 08/20/23 08/18/23 ipratropium bromide 42 mcg (0.06 2 spray intranasal QA 08/20/23 08/20/23 08/18/23 %) nasal spray melatonin 1 mg tablet 1 mg PO HS 08/20/23 08/20/23 08/18/23 methotrexate sodium 2.5 mg tablet 15 mg PO WK 08/20/23 08/20/23 Unknown prednisolone acetate 1 % eye 1 drp ophthalmic (eye) Q OTHER DAY 08/20/23 08/20/23 08/18/23 drops,suspension primidone 250 mg tablet 250 mg PO QPM 08/20/23 08/20/23 08/18/23 primidone 50 mg tablet 50 mg PO QAM 08/20/23 08/20/23 08/18/23 propranolol 80 mg capsule,24 80 mg PO QAM 08/20/23 08/20/23 08/18/23 hr,extended release rivaroxaban 20 mg tablet (Xarelto) 20 mg PO QPM 08/20/23 08/20/23 08/18/23 sertraline 100 mg tablet 100 mg PO QAM 08/20/23 08/20/23 08/18/23 Active Medications Generic Name Dose Route Start Last Admin Trade Name Freq PRN Reason Stop Dose Admin Hydromorphone HCl 0.5 mg 08/20/23 05:19 08/20/23 10:42 Hydromorphone Inj 0.5 Mg/0.5 Ml Syr IV 09/03/23 05:18 0.5 mg Q3H PRN Administration Pain (6,7,8,9,10) Sodium Chloride 1,000 mls @ 125 mls/hr 08/20/23 04:45 08/20/23 05:06 Nss IV 09/19/23 04:44 125 mls/hr .Q8H PJ Administration NPO Date Last Intake of Fluids: 08/19/23 Time Last Intake of Fluids: 23:00 Date Last Intake of Solids: 08/19/23 Time Last Intake of Solids: 20:00 Exercise / Class Metabolic Activity II 4-5 Yardwork/Stairs/Walk up hill Past Anesthesia History No Hx of Anesthesia Complications and No Family Hx of Anesthesia Complications Social History Smoking Status: Never smoker Hx Alcohol Use: Yes Alcohol type: wine alcohol intake frequency: holidays/special occasions only Hx Substance Use: No Review of Systems ROS Unobtainable: All systems reviewed & are unremarkable except as noted in HPI & below Physical Exam Vital Signs Last Vital Signs Temp 36.6 C 08/20/23 06:38 Pulse 79 08/20/23 12:00 Resp 18 08/20/23 12:00 BP 164/90 H 08/20/23 12:00 Pulse Ox 96 08/20/23 12:00 O2 Del Method Room Air 08/20/23 06:15 O2 Flow Rate 2 08/19/23 23:50 ENMT Mouth: no TMJ abnormality Thyromental Distance: > or= 3.5 Finger Breadths Mallampati Class: II Neck normal visual inspection and trachea midline; neck extension not limited Respiratory normal respiratory effort Auscultation: lungs clear to auscultation bilaterally Cardiovascular Rate/Rhythm: regular rate and regular rhythm Heart Sounds: no murmur Musculoskeletal Spine: normal cervical ROM Extremities: full ROM of extremities Neurologic moves all extremities Psychiatric Orientation: alert and oriented x 3 Testing Laboratory Results 08/20/23 05:51 08/20/23 05:51 PT 10.9 Seconds (9.0-12.0) 08/20/23 05:51 INR 1.0 (0.9-1.1) 08/20/23 05:51 APTT 30 Seconds (21-31) 08/20/23 05:51 Urine Color Yellow 08/19/23 21:58 Urine Appearance Cloudy (Clear) A 08/19/23 21:58 Urine pH 5.5 (4.5-7.5) 08/19/23 21:58 Ur Specific [place] 1.022 (1.000-1.030) 08/19/23 21:58 Urine Protein Negative (Negative) 08/19/23 21:58 Urine Glucose (UA) Negative (Negative) 08/19/23 21:58 Urine Ketones Negative (Negative) 08/19/23 21:58 Urine Nitrite Positive (Negative) A 08/19/23 21:58 Ur Leukocyte Esterase Trace (Negative) H 08/19/23 21:58 Urine WBC (Auto) 0-5 /hpf (0-5) 08/19/23 21:58 Urine RBC (Auto) 0-2 /hpf (0-2) 08/19/23 21:58 U Hyaline Cast (Auto) 0-2 /lpf (0-2) 08/19/23 21:58 U Epithel Cells (Auto) 0-2 /hpf (0-2) 08/19/23 21:58 Urine Bacteria (Auto) 4+ (None Seen) H 08/19/23 21:58
[2023-08-20] MEDS ORDERED: ONDANSETRON INJ 2 MG/ML 2 ML VIAL IV PRN (14:29)
[2023-08-20] MEDS ORDERED: fentaNYL citrate PF 100 MCG/2 ML VIAL IV PRN (14:29)
[2023-08-20] MEDS ORDERED: ePHEDrine sulfate 50 MG/ML AMP IV PRN (14:29)
[2023-08-20] MEDS ORDERED: ATROPINE SULFATE 0.1 MG/ML 10ML SYR IV PRN (14:29)
[2023-08-20] MEDS ORDERED: LIDOCAINE 2% 2 ML VIAL/AMP(20MG/ML) INFIL ONE (14:37)
[2023-08-20] MEDS ORDERED: PROPOFOL IV EMULSION 10 MG/ML 20 ML VIAL IV ONE (14:37)
[2023-08-20] MEDS ORDERED: fentaNYL citrate PF 100 MCG/2 ML VIAL ONE ×2 (14:37→15:22)
[2023-08-20] MEDS ORDERED: ONDANSETRON INJ 2 MG/ML 2 ML VIAL ONE (14:37)
[2023-08-20] MEDS ORDERED: DEXAMETHASONE SOD INJ 4 MG/ML VIAL ONE (14:37)
[2023-08-20] MEDS ORDERED: SUGAMMADEX SODIUM 200 MG/2 ML VIAL IV ONE (14:37)
[2023-08-20] MEDS ORDERED: ceFAZolin 330 MG/ML 1 GM VIAL ONE (15:02)
[2023-08-20] MEDS ORDERED: ACETAMINOPHEN 1000 MG/100 ML IV IV ONE (15:02)
[2023-08-20] MEDS: ceFAZolin 2000MG 2,000 MG/15 ML SYR IV ONE (15:05)
[2023-08-20] MEDS: BUPIVACAINE/EPINEPHRINE 0.5% MPF 1:200,000 30 ML VIAL ONE (15:21)
--- NOTE | 2023-08-20 15:50 | Operative Report ---
PG Post Operative Report Pre & Post Diagnosis Operation Date: 08/20/23 12:00 Pre-Op Diagnosis: Acute cholecystitis Post-Op Diagnosis: Acute cholecystitis I identified the patient and participated in the time-out.: Yes Procedure Operation Date: 08/20/23 12:00 Actual Procedures p Laparoscopic Cholecystectomy(Not Applicable) - Jeffry Dubon DO Surgeon Jeffry Dubon DO Infantryman n/a Estimated Blood Loss 10 Findings Consistent with Post-Op Diagnosis Specimens gallbladder Description of Procedure After informed consent was obtained the patient was taken to the operating room and placed in the supine position. After successful intubation the abdomen was sterilely prepped and draped in usual fashion. A periumbilical incision was made with an 11 blade scalpel and carried down through the soft tissue using electrocautery. The anterior rectus fascia was opened using electrocautery and 2 #0 Vicryl stay sutures were placed. The peritoneum was elevated with hemostats and incised under direct vision using Metzenbaum scissors. A finger sweep was performed and a 12 mm Tristan trocar was placed. The abdomen was insuf flated to 18 mmHg. The laparoscope was inserted and the abdomen was examined in 360. The gallbladder was grossly inflammed, otherwise no gross abnormalities were identified. A subxiphoid 5 mm port and 2 right upper quadrant 5 mm ports were placed under direct vision. The patient was placed in a reverse Trendelenburg position and slightly airplaned to the left. The gallbladder was too inflamed to grasped with graspers. I therefore used a gallbladder needle to drain what would be white bile out of the gallbladder. Next, the gallbladder was grasped and elevated superiorly and laterally. A small hole was made in the gallbladder releasing some of the bowel into the right upper quadrant. This was immediately suctioned and irrigated out. A [place] dissector was used to take down adhesions around the neck of the gallbladder. The cystic duct was identified and skeletonized. It was clipped twice proximally and once distally and transected using a laparoscopic scissor. In similar fashion the cystic artery was identified and skeletonized clipped and divided. The gallbladder was removed from the gallbladder fossa with electrocautery. It was placed into an Endo Catch bag. Thorough irrigation was performed. At the end of the procedure there was adequate hemostasis and no evidence of any bile leaks. A final look around the abdomen showed no other abnormalities. The gallbladder and trochars were all removed and the abdomen was desufflated. The fascia of the camera port was closed using 0 Vicryl in a [id number] fashion. All the wounds were irrigated and closed using 4-0 Monocryl. Marcaine was injected around them for postoperative analgesia and skin glue used as a dressing. The patient was awaken extubated and transferred to recovery in stable condition. I attest to the content of the Intraoperative Record and any orders documented therein. Any exceptions are noted below.
--- NOTE | 2023-08-20 16:13 | Anesthesiology Progress Note ---
Date of Service August 20, 2023 Anesthesia Post Procedure Vital Signs Vital Signs: Temp Pulse Pulse Resp BP BP BP 08/20/23 12:00 79 18 164/90 H 08/20/23 10:00 75 16 159/88 H 08/20/23 08:00 79 13 08/20/23 07:19 81 08/20/23 06:38 36.6 C 08/20/23 06:15 08/20/23 06:00 89 22 08/20/23 05:00 95 H 16 08/20/23 05:00 167/93 H 08/20/23 05:00 92 H 16 167/93 H 08/20/23 04:07 89 15 08/20/23 04:07 161/85 H 08/20/23 04:07 89 20 161/85 H 08/20/23 04:04 90 19 08/20/23 02:35 81 14 08/20/23 02:35 162/89 H 08/20/23 02:35 81 14 162/89 H 08/20/23 02:34 86 17 08/20/23 01:49 77 08/20/23 01:09 82 16 177/112 H 08/20/23 00:00 80 16 08/20/23 00:00 166/107 H 08/19/23 23:50 171/92 H 08/19/23 23:50 78 14 171/92 H 08/19/23 23:49 79 23 08/19/23 23:40 08/19/23 23:00 84 14 182/85 H 08/19/23 22:31 84 23 205/98 H 08/19/23 22:30 205/98 H 08/19/23 22:30 76 17 08/19/23 22:00 198/98 H 08/19/23 22:00 75 16 08/19/23 21:58 83 19 08/19/23 21:58 196/86 H 08/19/23 21:58 196/86 H 08/19/23 21:52 74 14 08/19/23 21:52 206/97 H 08/19/23 21:47 77 21 08/19/23 21:47 77 08/19/23 21:45 82 20 217/115 H 08/19/23 21:32 36.4 C L 73 18 208/96 H Pulse Ox Pulse Ox O2 Del Method O2 Del Method O2 Flow Rate 08/20/23 12:00 96 08/20/23 10:00 96 08/20/23 08:00 08/20/23 07:19 08/20/23 06:38 08/20/23 06:15 96 Room Air 08/20/23 06:00 08/20/23 05:00 95 08/20/23 05:00 08/20/23 05:00 96 Room Air 08/20/23 04:07 94 08/20/23 04:07 08/20/23 04:07 95 Room Air 08/20/23 04:04 97 08/20/23 02:35 94 08/20/23 02:35 08/20/23 02:35 91 Room Air 08/20/23 02:34 08/20/23 01:49 08/20/23 01:09 91 Room Air 08/20/23 00:00 08/20/23 00:00 08/19/23 23:50 08/19/23 23:50 97 Nasal Cannula 2 08/19/23 23:49 97 08/19/23 23:40 88 L 0 08/19/23 23:00 92 Room Air 08/19/23 22:31 96 Room Air 08/19/23 22:30 08/19/23 22:30 95 08/19/23 22:00 08/19/23 22:00 95 08/19/23 21:58 95 08/19/23 21:58 08/19/23 21:58 08/19/23 21:52 97 08/19/23 21:52 08/19/23 21:47 95 08/19/23 21:47 08/19/23 21:45 95 Room Air 08/19/23 21:32 98 Room Air Pain Intensity Upper Abdomen: Pain Intensity: 10 Transfer of Care Handoff Completed per policy Notes Mental Status: alert / awake / arousable Patient Amnestic to Procedure: Yes Nausea / Vomiting: adequately controlled Pain: adequately controlled Airway Patency, RR, SpO2: stable & adequate BP & HR: stable & adequate Hydration State: stable & adequate Anesthetic Complications: no major complications apparent and Pt Satisfied with anesthetic care
[2023-08-20] MEDS: ACETAMINOPHEN 1,000 MG/100 ML VIAL IV SCH (17:22)
--- NOTE | 2023-08-20 19:31 | Billing Data ---
Date of Service August 20, 2023 Coding Level of Care Code 03487 INT INP/OBS CARE
[2023-08-20] MEDS: oxyCODONE HCL IR 5 MG TAB (IMMEDIATE RELEASE) PO PRN (19:37)
--- NOTE | 2023-08-20 22:49 | Electrocardiogram Report ---
Test Reason : Blood Pressure : / mmHG Vent. Rate : 073 BPM Atrial Rate : 073 BPM P-R Int : 164 ms QRS Dur : 084 ms QT Int : 362 ms P-R-T Axes : 081 -28 023 degrees QTc Int : 398 ms Normal sinus rhythm Nonspecific ST abnormality Borderline ECG No previous ECGs available Confirmed by Deo Lewis ([id number]) on 08/20/2023 10:49:38 PM Referred By: NO PCP Confirmed By:Deo Lewis
[2023-08-21] MEDS: cefTRIAXone SODIUM 2,000 MG/50 ML BAG IV SCH (06:02)
[2023-08-21 06:56] LABS: Basophils # (auto) 0.05 K/uL (0.00-0.20); Basophils % (auto) 0.4 %; Eosinophils # (auto) 0.01 K/uL (0.00-0.50); Eosinophils % (auto) 0.1 %; Hematocrit (blood only) 35.6 % (37.0-47.0); Hemoglobin 11.9 g/dl (12.0-16.0); Immature Granulocytes # (auto) 0.05 K/uL (0.01-0.20); Immature Granulocytes % (auto) 0.4 %; Lymphocytes % (auto) 13.1 %; Mean Corpuscular Hgb Conc 33.4 g/dL (32.0-36.0); Mean Corpuscular Volume 95.7 fL (80.0-100.0); Mean Platelet Volume 10.7 fL (9.4-12.4); Monocytes % (auto) 5.2 %; Neutrophils # (auto) 9.25 K/uL (1.40-6.50); Neutrophils % (auto) 80.8 %; Platelet Count 168 K/uL (130-400); RDW Standard Deviation 49.2 fL (36.4-46.3); Red Blood Count 3.72 M/uL (4.20-5.40); White Blood Count 11.46 K/ul (4.8-10.8)
[2023-08-21 07:02] LABS: Albumin Globulin Ratio 1.6 (0.9-2); Albumin Level 3.4 gm/dl (3.4-5.0); BUN Creatinine Ratio 16.3 (10-20); Bilirubin,Total 0.8 mg/dl (0.2-1.0); Calcium 7.6 mg/dl (8.6-10.3); Creatinine Clr Calc Pharmacy 87.1 ml/min; Est GFR (African American) 106.6 ml/min; Globulin 2.1 gm/dl (2.5-4.0); Potassium 3.4 mmol/L (3.5-5.1); Total Protein 5.5 gm/dl (6.0-8.3)
--- NOTE | 2023-08-21 08:54 | Surgery Progress Note ---
Date of Service August 21, 2023 Assessment & Plan (1) Acute cholecystitis: Plan: POD 1 ? gas trapping ambulate today. probably will not be ready for d/c. trial diet today. Admission and Anticipated Discharge Date Admission Date: August 20, 2023 Subjective pt having more pain than she expected. managing with pain meds Physical Exam Physical Exam: alert. nad abd: soft. expected tenderness Results & Data Vital Signs (Past 12 Hours) Vital Signs Temp Pulse Resp BP Pulse Ox O2 Del Method 08/21/23 07:16 37.4 C 99 H 18 128/69 92 Room Air 08/21/23 03:05 36.7 C 75 18 123/66 95 Room Air 08/20/23 22:24 36.8 C 103 H 18 148/82 H 94 Room Air PG Care Time/CCT Total # of Minutes Spent Total Time Spent with Patient: Total time spent is greater than 50% in coordination of care (as documented) at patient's floor/unit and/or counseling patient: Coding Level of Care Code 68370 Post Operative Follow-Up Diagnoses Acute cholecystitis K81.0
[2023-08-21] MEDS: POLYETHYLENE (MIRALAX) 17 GM PACK PO SCH (09:18)
[2023-08-21] MEDS: DOCUSATE SODIUM/SENNA 50/8.6MG TAB PO SCH (09:19)
[2023-08-21] MEDS: PROPRANOLOL HCL LA 80 MG CAPCR PO SCH (09:19)
[2023-08-21] MEDS: prednisoLONE acetate 1% OP SUSP 5 ML BTL OP SCH (14:30)
[2023-08-21] MEDS ORDERED: CYCLOBENZAPRINE HCL 5 MG TAB PO PRN (17:18)
[2023-08-21] MEDS: POTASSIUM CHLORIDE CRTAB 20 MEQ TABCR PO STA (17:32)
[2023-08-21] MEDS: MELATONIN 3 MG TAB PO SCH (20:33)
[2023-08-21] MEDS ORDERED: PRIMIDONE 250 MG TAB PO SCH (21:00)
[2023-08-21] MEDS: PRIMIDONE 50 MG TAB PO SCH (21:54)
--- NOTE | 2023-08-21 22:22 | Hospitalist Progress Note ---
Date of Service August 21, 2023 Assessment & Plan (1) Acute cholecystitis: Plan: -CBC, CMP, lipase, and bilirubin are all within normal limits. -CT abdomen showed cholelithiasis, right upper quadrant ultrasound showed acute cholecystitis. -Surgery consulted, s/p cholecystectomy. -Dilaudid as needed for pain. -Ceftriaxone continued. -Antiemetics as needed -wbc trending down -patient still with pain (2) UTI (urinary tract infection): Plan: -UA showing nitrates, leukocyte Estrace, and 4+ bacteria. -No current symptoms of UTI, though is on ceftriaxone as above for acute cholecystitis. (3) A-fib: Plan: -Hold Xarelto. -Will monitor on telemetry. (4) History of TIA (transient ischemic attack): Plan: -Holding home statin. (5) History of lumbar fusion: Plan: -Noted. She was supposed to have a MRI on Monday. (6) Essential tremor: Plan: -Holding home medications in anticipation of surgery. Plan Fluids: NSS @ 125ml/hr Nutrition: NPO Code status: Conditional DVT ppx: SCDs, holding home Xarelto Consults: Surgery Dispo: Telemetry Admission and Anticipated Discharge Date Admission Date: August 20, 2023 Subjective 78 yo female reports that she continues to have abdominal pain. Review of Systems Review of Systems: All systems reviewed & are unremarkable except as noted in HPI & below Physical Exam Physical Exam: Constitutional: well-appearing, no acute distress HEENT: NCAT, no conjunctival injection CV: regular rhythm, no murmur appreciated, extremities well-perfused, no LE edema Resp: CTABL, no wheezes/rales/rhonchi appreciated, no increased work of breathing GI: Soft, nondistended, right upper quadrant tenderness MSK: no gross deformities appreciated Skin: warm, dry, no rash appreciated Neuro: alert, oriented, no focal neurologic deficit appreciated Results & Data Results & Data Vital Signs (Past 12 Hours) Vital Signs Temp Pulse Pulse Resp BP BP Pulse Ox 08/21/23 21:58 36.7 C 104 H 18 131/77 91 08/21/23 19:56 36.8 C 76 16 104/59 L 95 08/21/23 16:00 76 08/21/23 15:01 37.2 C 78 18 109/66 96 08/21/23 11:26 36.7 C 81 18 114/67 95 O2 Del Method 08/21/23 21:58 Room Air 08/21/23 19:56 Room Air 08/21/23 16:00 08/21/23 15:01 Room Air 08/21/23 11:26 Room Air PG Care Time/CCT Total # of Minutes Spent Total Time Spent with Patient: Total time spent is greater than 50% in coordination of care (as documented) at patient's floor/unit and/or counseling patient: Coding Level of Care Code 91101 SUB INP/OBS CARE 2/35MIN Diagnoses Acute cholecystitis K81.0 UTI (urinary tract infection) N39.0 Urinary tract infection type: site unspecified A-fib I48.91 History of TIA (transient ischemic attack) Z86.73 History of lumbar fusion Z98.1 Essential tremor G25.0 (2) UTI (urinary tract infection) Urinary tract infection type: site unspecified
--- NOTE | 2023-08-21 23:06 | Communication Note ---
Date of Service: August 21, 2023 Notified by nursing that patient flipped from sinus rhythm to atrial fibrillation with RVR, HR ranging from 110-140s. She has a history of atrial fibrillation but has reportedly not been in afib for an extended period. She is typically on anticoagulation with Xarelto, but this is currently being held due to her surgery. I ordered a repeat BMP and a magnesium level, EKG obtained which showed afib with RVR. Blood pressure has remained stable (130s/80s), 5mg IV lopressor ordered due to sustained HR reaching >140, HR improved to 110s after administration. HR again increased to 140s+ later, an additional 5mg of IV lopressor was ordered in addition to electrolyte repletion with 20 of KCl and 2g mag sulfate.
[2023-08-21] MEDS: METOPROLOL TARTRATE 1 MG/ML VIAL IV STA (23:13)
[2023-08-22 00:05] LABS: BUN Creatinine Ratio 12.1 (10-20); Calcium 7.6 mg/dl (8.6-10.3); Creatinine Clr Calc Pharmacy 73.6 ml/min; Est GFR (African American) 100.9 ml/min; Est GFR (Non-African American) 87.1 ml/min; Magnesium 1.7 mg/dl (1.7-2.4); Potassium 3.8 mmol/L (3.5-5.1)
[2023-08-22] MEDS: POTASSIUM CHLORIDE CRTAB 20 MEQ TABCR PO STA (00:45)
[2023-08-22] MEDS: MAGNESIUM SULFATE / D5W 1 GM/100 ML BAG IV SCH (00:46)
[2023-08-22] MEDS: METOPROLOL TARTRATE 1 MG/ML VIAL IV STA (00:46)
[2023-08-22 06:51] LABS: Hematocrit (blood only) 32.3 % (37.0-47.0); Hemoglobin 10.5 g/dl (12.0-16.0); Mean Corpuscular Hemoglobin 32.2 pg (25.0-34.0); Mean Corpuscular Hgb Conc 32.5 g/dL (32.0-36.0); Mean Corpuscular Volume 99.1 fL (80.0-100.0); Mean Platelet Volume 11.1 fL (9.4-12.4); Platelet Count 174 K/uL (130-400); RDW Coefficient of Variation 14.5 % (11.5-14.5); RDW Standard Deviation 52.9 fL (36.4-46.3); Red Blood Count 3.26 M/uL (4.20-5.40); White Blood Count 9.25 K/ul (4.8-10.8)
[2023-08-22 07:08] LABS: Albumin Level 3.2 gm/dl (3.4-5.0); BUN Creatinine Ratio 12.7 (10-20); Bilirubin Direct 0.1 mg/dl (0-0.2); Bilirubin,Total 0.4 mg/dl (0.2-1.0); Calcium 7.4 mg/dl (8.6-10.3); Creatinine Clr Calc Pharmacy 78.7 ml/min; Est GFR (African American) 102.7 ml/min; Est GFR (Non-African American) 88.6 ml/min; Total Protein 5.4 gm/dl (6.0-8.3)
--- NOTE | 2023-08-22 08:23 | Surgery Progress Note ---
Date of Service August 22, 2023 Assessment & Plan (1) Acute cholecystitis: Plan: doing ok from my standpoint. hg dropped 1 gram...would hold xarelto until repeat H/H performed. Admission and Anticipated Discharge Date Admission Date: August 20, 2023 Subjective pt seen. still having some umb incision discomfort. no n/v. batsheva diet. Physical Exam Physical Exam: alert. nad abd: soft. expected tenderness. Results & Data Vital Signs (Past 12 Hours) Vital Signs Temp Pulse Pulse Resp BP BP Pulse Ox 08/22/23 07:24 37.2 C 80 18 125/74 91 08/22/23 02:36 37.6 C H 90 22 144/76 H 90 08/22/23 01:01 100 H 08/22/23 00:19 140 H 143/85 H 08/21/23 23:28 113 H 08/21/23 23:13 138 H 08/21/23 23:03 142 H 135/83 08/21/23 21:58 36.7 C 104 H 18 131/77 91 O2 Del Method 08/22/23 07:24 Room Air 08/22/23 02:36 Room Air 08/22/23 01:01 08/22/23 00:19 08/21/23 23:28 08/21/23 23:13 08/21/23 23:03 08/21/23 21:58 Room Air PG Care Time/CCT Total # of Minutes Spent Total Time Spent with Patient: Total time spent is greater than 50% in coordination of care (as documented) at patient's floor/unit and/or counseling patient: Coding Level of Care Code 80426 Post Operative Follow-Up Diagnoses Acute cholecystitis K81.0
[2023-08-22] MEDS: ONDANSETRON INJ 2 MG/ML 2 ML VIAL IV PRN (09:52)
[2023-08-22] MEDS: ATORVASTATIN 10 MG TAB PO SCH (09:59)
[2023-08-22] MEDS: SERTRALINE HCL 100 MG TABLET PO SCH (09:59)
[2023-08-22] MEDS: IPRATROPIUM BROMIDE NASAL SPRAY 0.06% 15ML NAE SCH (09:59)
[2023-08-22] MEDS: FOLIC ACID 1 MG TAB PO SCH (09:59)
[2023-08-22] MEDS: PRIMIDONE 50 MG TAB PO SCH (09:59)
--- NOTE | 2023-08-22 19:27 | XRay Report ---
XR chest 2V PA/lateral CLINICAL HISTORY: Hypoxia. COMPARISON STUDY: Chest radiograph August 20, 2023. FINDINGS: No pneumothorax. Trace bilateral pleural effusions are present. There is mild cardiomegaly. Mild interstitial thickening is noted with patchy bibasilar opacities. IMPRESSION: 1. Mild interstitial pulmonary edema with trace bilateral pleural effusions. 2. Patchy bibasilar opacities which could reflect atelectasis or less likely pneumonia. ACT 112: Negative or not required by law. Electronically signed by: Marck Marquez M.D. 08/22/2023 7:25 PM
--- NOTE | 2023-08-22 19:50 | CT Scan Report ---
CT OF THE ABDOMEN AND PELVIS WITHOUT CONTRAST CLINICAL HISTORY: Dropped hemoglobin. Status post laparoscopic cholecystectomy August 20, 2023. COMPARISON STUDY: CT of the abdomen and pelvis August 19, 2023 and right upper quadrant ultrasound August. TECHNIQUE: Axial images of the abdomen and pelvis were obtained without IV contrast. Images were revi ewed in the axial, sagittal, and coronal planes. Automated exposure control was utilized for the phi dy. A dose lowering technique was utilized adhering to the principles of ALARA. FINDINGS: There are trace bilateral pleural effusions. Mild interlobular septal thickening is noted. Lower lung opacities favor atelectasis. No pneumatosis or portal venous gas is present. Gas within th e anterior abdominal wall is postsurgical. There is no biliary ductal dilatation status post cholecys tectomy. Stranding within the operative bed is likely postsurgical. There is mild wall thickening of the proximal duodenum. This is also likely postsurgical. 2 mm left renal calculus is present. Water a ttenuation left renal lesion favors a cyst. There is no hydronephrosis. There is no evidence for a aleta wel obstruction. The spleen, adrenal glands and pancreas are unremarkable on unenhanced exam. Mild pr esacral stranding. The appendix is normal. No hyperdense fluid collection to suggest hematoma is pres ent. IMPRESSION: 1. Status post cholecystectomy. Operative bed stranding which is likely postsurgical. No well-defined fluid collection to suggest hematoma. No biliary ductal dilatation. 2. Abdominal wall gas which is postsurgical. 3. Trace bilateral pleural effusions. Mild interstitial pulmonary edema. Lower lung opacities which f avor atelectasis. ACT 112: Negative or not required by law. Electronically signed by: Marck Marquez M.D. 08/22/2023 7:48 PM
[2023-08-22] MEDS: BENZONATATE 100 MG CAPSULE PO PRN (22:20)
[2023-08-22] MEDS: PRIMIDONE 250 MG TAB PO SCH (22:21)
--- NOTE | 2023-08-22 22:56 | Hospitalist Progress Note ---
Date of Service August 22, 2023 Assessment & Plan (1) Acute cholecystitis: Plan: -CBC, CMP, lipase, and bilirubin are all within normal limits. -CT abdomen showed cholelithiasis, right upper quadrant ultrasound showed acute cholecystitis. -Surgery consulted, s/p cholecystectomy. -Dilaudid as needed for pain. -Ceftriaxone continued. -Antiemetics as needed -wbc trending down -patient still with pain Concern for anemia, ordered ct scan of abd. pelvis. No collection of hematoma. Given hypoxia, ordered chest xray. (2) UTI (urinary tract infection): Plan: -UA showing nitrates, leukocyte Estrace, and 4+ bacteria. -No current symptoms of UTI, though is on ceftriaxone as above for acute cholecystitis. (3) A-fib: Plan: Paroxysmal A. fib -Hold Xarelto. -Will monitor on telemetry. (4) History of TIA (transient ischemic attack): Plan: -resume home statin. (5) History of lumbar fusion: Plan: -Noted. She was supposed to have a MRI on Monday. (6) Essential tremor: Plan: -resumed home meds Plan Code status: Conditional DVT ppx: SCDs, holding home Xarelto Consults: Surgery Dispo: Telemetry Admission and Anticipated Discharge Date Admission Date: August 20, 2023 Subjective Patient reports she continues to have abdominal pain, but it is slightly better. Review of Systems Review of Systems: All systems reviewed & are unremarkable except as noted in HPI & below Physical Exam Physical Exam: Constitutional: well-appearing, no acute distress HEENT: NCAT, no conjunctival injection CV: regular rhythm, no murmur appreciated, extremities well-perfused, no LE edema Resp: CTABL, no wheezes/rales/rhonchi appreciated, no increased work of breathing GI: Soft, nondistended, right upper quadrant tenderness MSK: no gross deformities appreciated Skin: warm, dry, no rash appreciated Neuro: alert, oriented, no focal neurologic deficit appreciated Results & Data Results & Data Vital Signs (Past 12 Hours) Vital Signs Temp Pulse Pulse Resp BP Pulse Ox O2 Del Method 08/22/23 22:55 89 08/22/23 22:38 36.9 C 90 18 154/79 H 90 Nasal Cannula 08/22/23 20:35 Nasal Cannula 08/22/23 19:13 36.8 C 74 18 133/79 92 Nasal Cannula 08/22/23 15:06 37.1 C 82 19 138/74 92 Nasal Cannula 08/22/23 14:00 83 08/22/23 11:05 36.8 C 78 19 145/78 H 90 Room Air O2 Flow Rate 08/22/23 22:55 08/22/23 22:38 3 08/22/23 20:35 3 08/22/23 19:13 3 08/22/23 15:06 3 08/22/23 14:00 08/22/23 11:05 PG Care Time/CCT Total # of Minutes Spent Total Time Spent with Patient: Total time spent is greater than 50% in coordination of care (as documented) at patient's floor/unit and/or counseling patient: Coding Level of Care Code 39167 SUB INP/OBS CARE 2MIN Diagnoses Acute cholecystitis K81.0 UTI (urinary tract infection) N39.0 Urinary tract infection type: site unspecified A-fib I48.91 History of TIA (transient ischemic attack) Z86.73 History of lumbar fusion Z98.1 Essential tremor G25.0 (2) UTI (urinary tract infection) Urinary tract infection type: site unspecified
[2023-08-22] MEDS: ALBUT/IPRATROP 3MG/0.5MG NEB 3 ML VIAL ONE (23:37)
--- NOTE | 2023-08-23 | Communication Note ---
Date of Service: August 23, 2023 Notified by nursing that Leslie Vann had a dry/non-productive cough, ordered alfonzo rendon. Was later notifed that her cough had improved but she had an in creased oxygen requirement, was currently on 11L. She had a chest x-ray completed this afternoon due to hypoxia which showed "mild interstitial pulmonary edema with trace bilateral pleural effusions and patchy bibasilar opacities which could reflect atelectasis or less likely pneumonia". I went to bedside, patient was completing a breathing treatment at that time. Some wheezes and few rales appreciated. Upon chart review and after discussion with nursing, it was noted that she has received ongoing IVF since admission. Nursing paused the fluids at the time of her increased oxygen requirement, I discontinued the order for IV fluids. 20mg IV Lasix ordered due to concern of some element of fluid overload. Considering her recent surgery and history of atrial fibrillation (currently her home Xarelto is paused from her surgery), pulmonary embolism remains in the differential although with her HR remaining largely in the 90s I have a lower suspicion of PE at this time.
[2023-08-23] MEDS: FUROSEMIDE INJ 20 MG/2 ML VIAL IV ONE (00:06)
--- NOTE | 2023-08-23 05:05 | Electrocardiogram Report ---
Test Reason : Blood Pressure : / mmHG Vent. Rate : 118 BPM Atrial Rate : 115 BPM P-R Int : 000 ms QRS Dur : 078 ms QT Int : 304 ms P-R-T Axes : 000 -27 -09 degrees QTc Int : 426 ms Atrial fibrillation with rapid ventricular response Nonspecific ST abnormality Abnormal ECG When compared with ECG of 19-AUG-2023 21:53, Atrial fibrillation has replaced Sinus rhythm Vent. rate has increased BY 45 BPM Confirmed by Jimmy Hudson ([id number]) on 08/23/2023 5:05:18 AM Referred By: NO PCP Confirmed By:Jimmy Hudson
[2023-08-23 06:19] LABS: Basophils # (auto) 0.03 K/uL (0.00-0.20); Basophils % (auto) 0.3 %; Eosinophils # (auto) 0.18 K/uL (0.00-0.50); Eosinophils % (auto) 1.7 %; Hemoglobin 12.4 g/dl (12.0-16.0); Immature Granulocytes # (auto) 0.05 K/uL (0.01-0.20); Immature Granulocytes % (auto) 0.5 %; Lymphocytes # (auto) 1.29 K/uL (1.20-3.40); Lymphocytes % (auto) 12.3 %; Mean Corpuscular Hemoglobin 31.8 pg (25.0-34.0); Mean Corpuscular Hgb Conc 32.6 g/dL (32.0-36.0); Mean Corpuscular Volume 97.4 fL (80.0-100.0); Mean Platelet Volume 10.9 fL (9.4-12.4); Monocytes # (auto) 0.56 K/uL (0.11-0.59); Monocytes % (auto) 5.4 %; Neutrophils # (auto) 8.34 K/uL (1.40-6.50); Neutrophils % (auto) 79.8 %; Platelet Count 167 K/uL (130-400); White Blood Count 10.45 K/ul (4.8-10.8)
[2023-08-23 06:36] LABS: Albumin Level 3.5 gm/dl (3.4-5.0); BUN Creatinine Ratio 15.2 (10-20); Bilirubin Direct 0.1 mg/dl (0-0.2); Bilirubin,Total 0.5 mg/dl (0.2-1.0); Calcium 7.6 mg/dl (8.6-10.3); Creatinine Clr Calc Pharmacy 95.6 ml/min; Est GFR (African American) 108.9 ml/min; Potassium 3.4 mmol/L (3.5-5.1); Total Protein 6.1 gm/dl (6.0-8.3)
[2023-08-23] MEDS: POTASSIUM CHLORIDE CRTAB 20 MEQ TABCR PO STA (07:30)
[2023-08-23] MEDS: FUROSEMIDE 40 MG/4 ML VIAL IV ONE (07:30)
--- NOTE | 2023-08-23 09:39 | Hospitalist Progress Note ---
Date of Service August 23, 2023 Assessment & Plan (1) Acute hypoxic respiratory failure: Plan: developed acute hypoxic respiratory failure due to pulmonary edema, unknown EF, likely from ivf associated with surgery given lasix 08/21 and am of 08/22, dramatic improvement reduction in oxygen need. (2) A-fib: Plan: Paroxysmal A. fib patient with episode of tachycardia associate with uncontrolled A-fib. Initiated on diltiazem drip after 15 mg bolus. Good control of her heart rate but continues to be in atrial fibrillation. -surgery ok to resume Xarelto. Will consider on 08 23 or history of TIA also continues atorvastatin (3) Acute cholecystitis: Plan: -CT abdomen showed cholelithiasis, right upper quadrant ultrasound showed acute cholecystitis. -Surgery consulted, s/p cholecystectomy 08/20/23 -Ceftriaxone continued. Concern for anemia, ordered ct scan of abd. pelvis 07/23/23 no acute changes, pulmonary fluid overload suggested (4) UTI (urinary tract infection): Plan: -UA showing nitrates, leukocyte Estrace, and 4+ bacteria. grew E coli resistent to quinalonoes, -No current symptoms of UTI, though is on ceftriaxone as above for acute cholecystitis. Plan Atrial fibrillation delays discharge will control rate and recent to medications on 08/23 with consideration of discharge in the evening of 08 23 or depending on the resolution of the patient's hypoxemia Code status: Conditional chronic tremor h/o lumbar fusion Admission and Anticipated Discharge Date Admission Date: August 20, 2023 Subjective Patient was found to be in atrial fibrillation rapid ventricular response this morning. This was coupled with her being short of breath. Overnight she did develop hypoxia and a chest x-ray revealed pulmonary edema. Her ins and outs showed her to be markedly ahead with about 4.9 L of fluid and more than out. She was given Lasix x 2 started on a diltiazem drip and she regained good rate control in the 90s to 100s. She is able to have her oxygen titrated down to 2 L. She is accompanied by her family at bedside all questions were answered. Physical Exam Physical Exam: Upon my evaluation patient was awake alert and oriented. Cardiac exam is irregularly irregular and rapid. There were no murmurs Lungs decreased breath sounds at the bases few rales at the bases Abdomen was tender at the laparoscopic entrance sites but those wounds were slightly bruised but clean dry and intact Extremities without edema. Results & Data Results & Data Vital Signs (Past 12 Hours) Vital Signs Temp Pulse Pulse Resp BP Pulse Ox O2 Del Method 08/23/23 07:40 98.2 F 96 H 18 149/77 H 97 High Flow Nasal Cannula 08/23/23 07:00 96 H 08/23/23 07:00 Room Air 08/23/23 04:34 96 High Flow Nasal Cannula 08/23/23 02:31 98.4 F 95 H 20 162/86 H 97 Nasal Cannula 08/22/23 23:37 90 18 95 Nasal Cannula 08/22/23 22:55 89 08/22/23 22:38 98.4 F 90 18 154/79 H 90 Nasal Cannula O2 Flow Rate 08/23/23 07:40 6 08/23/23 07:00 08/23/23 07:00 6 08/23/23 04:34 6 08/23/23 02:31 11 08/22/23 23:37 11 08/22/23 22:55 08/22/23 22:38 3 Laboratory Results Reviewed chest x-ray reviewed chemistry reviewed CBC PG Care Time/CCT Total # of Minutes Spent Total Time Spent with Patient: Total time spent is greater than 50% in coordination of care (as documented) at patient's floor/unit and/or counseling patient: Coding Level of Care Code 91429 SUB INP/OBS CARE 3/50MIN Diagnoses Acute hypoxic respiratory failure J96.01 A-fib I48.91 Acute cholecystitis K81.0 UTI (urinary tract infection) N39.0 Urinary tract infection type: site unspecified (4) UTI (urinary tract infection) Urinary tract infection type: site unspecified
--- NOTE | 2023-08-23 09:44 | Surgery Progress Note ---
Date of Service August 23, 2023 Assessment & Plan (1) Acute cholecystitis: Plan: POD#3 lap yamileth WBC 10.4, Hbg 12.4 (10.5) Went into afib overnight and had increasing O2 requirement, CXR shows some mild pulmonary edema and b/l effusions along w/ atelectasis. She is receiving IV lasix Vomited yesterday and had hbg drop, therefore CT a/p obtained without any acute post surgical findings She may continue a diet as she tolerates. currently dealing with some mild [place] and low appetite that should improve with time Incisions c/d/i with some slight ecchymosis Will benefit from PT/OT once more medically stable Okay to resume xarelto from our standpoint Admission and Anticipated Discharge Date Admission Date: August 20, 2023 Subjective Patient's biggest complaint is feeling weak. Her abdominal pain is manageable. She has feelings of mild nausea and did vomit yesterday. She does not have much appetite. Currently trying crackers. Went into afib last night and currently denies CP/SOB. + flatus, no BMs Physical Exam Physical Exam: awake/alert, no distress Respiratory: normal respiratory effort on 6L nasal cannula Gastrointestinal (Abdomen): Inspection/Auscultation: + abdominal surgical incision (c/d/i, some ecchymosis of midline/belly incision); abdomen not distended Percussion/Palpation: + abdomen tender (expected hair incisional discomfort ) and abdomen soft Results & Data Vital Signs (Past 12 Hours) Vital Signs Temp Pulse Pulse Resp BP Pulse Ox O2 Del Method 08/23/23 07:40 98.2 F 96 H 18 149/77 H 97 High Flow Nasal Cannula 08/23/23 07:00 96 H 08/23/23 07:00 Room Air 08/23/23 04:34 96 High Flow Nasal Cannula 08/23/23 02:31 98.4 F 95 H 20 162/86 H 97 Nasal Cannula 08/22/23 23:37 90 18 95 Nasal Cannula 08/22/23 22:55 89 08/22/23 22:38 98.4 F 90 18 154/79 H 90 Nasal Cannula O2 Flow Rate 08/23/23 07:40 6 08/23/23 07:00 08/23/23 07:00 6 08/23/23 04:34 6 08/23/23 02:31 11 08/22/23 23:37 11 08/22/23 22:55 08/22/23 22:38 3 PG Care Time/CCT Total # of Minutes Spent Total Time Spent with Patient: Total time spent is greater than 50% in coordination of care (as documented) at patient's floor/unit and/or counseling patient: Coding Level of Care Code 89828 Post Operative Follow-Up Diagnoses Acute cholecystitis K81.0
[2023-08-23] MEDS ORDERED: STAT IV Infusion **Titration per Protocol STA (10:24)
[2023-08-23] MEDS: dilTIAZem HCL 125 MG in DEXTROSE 5% 100 ML IV SCH (10:39)
[2023-08-23] MEDS: dilTIAZem HCl 5 MG/ML 5 ML VIAL IV STA (10:42)
[2023-08-23] MEDS: HYDROmorphone INJ 0.5 MG/0.5 ML SYR IV PRN (23:19)
--- NOTE | 2023-08-24 05:33 | Communication Note ---
Date of Service: August 24, 2023 I was notified by nursing that Leslie Vann converted from atrial fibrillation to sinus rhythm earlier this evening. She was receiving a diltiazem drip at pre sent and vitals stable without bradycardia. I put in an order to start PO diltiazem at 9 a.m. as well as to hold the diltiazem drip at the same time. Further modifications of PO diltiazem will be deferred to daytime hospitalist.
--- NOTE | 2023-08-24 07:44 | Surgery Progress Note ---
Date of Service August 24, 2023 Assessment & Plan (1) Hx laparoscopic cholecystectomy: Plan: no issues from my standpoint. will continue to follow while in hospital d/c planning Admission and Anticipated Discharge Date Admission Date: August 20, 2023 Subjective doing ok. batsheva diet though not much appetite. is able to ambulate Physical Exam Physical Exam: alert. nad abd: soft. expected tenderness. incisions look good. Results & Data Vital Signs (Past 12 Hours) Vital Signs Temp Pulse Pulse Resp BP Pulse Ox O2 Del Method 08/24/23 07:33 36.8 C 76 16 119/70 94 Nasal Cannula 08/24/23 03:21 37.1 C 76 20 114/70 95 Nasal Cannula 08/23/23 23:34 37.2 C 86 22 131/81 94 Nasal Cannula 08/23/23 23:27 95 H 08/23/23 21:08 Nasal Cannula 08/23/23 19:50 37.1 C 91 H 22 113/74 96 Nasal Cannula O2 Flow Rate 08/24/23 07:33 1 08/24/23 03:21 1 08/23/23 23:34 1 08/23/23 23:27 08/23/23 21:08 2 08/23/23 19:50 6 PG Care Time/CCT Total # of Minutes Spent Total Time Spent with Patient: Total time spent is greater than 50% in coordination of care (as documented) at patient's floor/unit and/or counseling patient: Coding Level of Care Code 57670 Post Operative Follow-Up Diagnoses Hx laparoscopic cholecystectomy Z90.49
[2023-08-24] MEDS: PROPRANOLOL HCL LA 80 MG CAPCR PO SCH (08:32)
[2023-08-24] MEDS ORDERED: dilTIAZem HCL 30 MG TAB PO SCH (09:00)
[2023-08-24 10:31] LABS: Albumin Globulin Ratio 1.3 (0.9-2); Albumin Level 3.2 gm/dl (3.4-5.0); BUN Creatinine Ratio 25.5 (10-20); Bilirubin,Total 0.4 mg/dl (0.2-1.0); Creatinine Clr Calc Pharmacy 79.1 ml/min; Est GFR (African American) 102.7 ml/min; Est GFR (Non-African American) 88.6 ml/min; Globulin 2.4 gm/dl (2.5-4.0); Magnesium 1.9 mg/dl (1.7-2.4); Potassium 3.5 mmol/L (3.5-5.1); Total Protein 5.6 gm/dl (6.0-8.3)
[2023-08-24] MEDS: FUROSEMIDE INJ 20 MG/2 ML VIAL IV ONE (12:36)
[2023-08-24] MEDS: MAGNESIUM SULFATE / D5W 1 GM/100 ML BAG IV ONE (13:30)
[2023-08-24] MEDS: POTASSIUM CHLORIDE CRTAB 20 MEQ TABCR PO STA (13:30)
--- NOTE | 2023-08-24 16:06 | Hospitalist Progress Note ---
Date of Service August 24, 2023 Assessment & Plan (1) Acute hypoxic respiratory failure: Plan: developed acute hypoxic respiratory failure due to pulmonary edema, unknown EF, likely from ivf associated with surgery given lasix 08/21 and am of 08/22, dramatic improvement reduction in oxygen need. still with one liter required (2) A-fib: Plan: Paroxysmal A. fib patient with episode of tachycardia associate with uncontrolled A-fib. converted to nsr with diltiazem gtt and bolus -surgery ok to resume Xarelto. Will consider on start 08/24 will need discussion with pt and family history of TIA also continues atorvastatin (3) Acute cholecystitis: Plan: -CT abdomen showed cholelithiasis, right upper quadrant ultrasound showed acute cholecystitis. -Surgery consulted, s/p cholecystectomy 08/20/23 -Ceftriaxone continued. Concern for anemia, ordered ct scan of abd. pelvis 07/23/23 no acute changes, pulmonary fluid overload suggested (4) UTI (urinary tract infection): Plan: -UA showing nitrates, leukocyte Estrace, and 4+ bacteria. grew E coli resistent to quinalonoes, -No current symptoms of UTI, though is on ceftriaxone as above for acute cholecystitis. complete 5 days Plan discharge depending on the resolution of the patient's hypoxemia, pt is considering rehab at this point Code status: Conditional chronic tremor h/o lumbar fusion Admission and Anticipated Discharge Date Admission Date: August 20, 2023 Subjective pt has converted to NSR, remains with hypoxia, Physical Exam Physical Exam: Upon my evaluation patient was awake alert and oriented. Cardiac exam is now regular and rate controlled There were no murmurs Lungs decreased breath sounds at the bases few rales at the bases Abdomen was with nabs, soft Extremities without edema. Results & Data Results & Data Vital Signs (Past 12 Hours) Vital Signs Temp Pulse Resp BP Pulse Ox O2 Del Method O2 Flow Rate 08/24/23 15:02 97.5 F L 68 18 124/67 94 Nasal Cannula 1 08/24/23 11:21 98.4 F 74 20 115/60 96 Nasal Cannula 1 08/24/23 08:00 Nasal Cannula 1 08/24/23 07:33 98.2 F 76 16 119/70 94 Nasal Cannula 1 Laboratory Results review chemistry and lft PG Care Time/CCT Total # of Minutes Spent Total Time Spent with Patient: Total time spent is greater than 50% in coordination of care (as documented) at patient's floor/unit and/or counseling patient: Coding Level of Care Code 07696 SUB INP/OBS CARE 235MIN Diagnoses Acute hypoxic respiratory failure J96.01 A-fib I48.91 Acute cholecystitis K81.0 UTI (urinary tract infection) N39.0 Urinary tract infection type: site unspecified (4) UTI (urinary tract infection) Urinary tract infection type: site unspecified
[2023-08-25] MEDS: dilTIAZem HCL 30 MG TAB PO ONE (08:57)
[2023-08-25 13:32] LABS: Hematocrit (blood only) 35.9 % (37.0-47.0); Hemoglobin 12.3 g/dl (12.0-16.0); Mean Corpuscular Hgb Conc 34.3 g/dL (32.0-36.0); Mean Corpuscular Volume 93.5 fL (80.0-100.0); Mean Platelet Volume 10.6 fL (9.4-12.4); Platelet Count 238 K/uL (130-400); RDW Coefficient of Variation 14.1 % (11.5-14.5); Red Blood Count 3.84 M/uL (4.20-5.40)
[2023-08-25] MEDS: dilTIAZem HCL 120 MG CAPCR PO SCH (13:34)
[2023-08-25 13:53] LABS: Albumin Globulin Ratio 1.1 (0.9-2); Albumin Level 3.2 gm/dl (3.4-5.0); BUN Creatinine Ratio 23.5 (10-20); Bilirubin,Total 0.4 mg/dl (0.2-1.0); Calcium 8.7 mg/dl (8.6-10.3); Creatinine Clr Calc Pharmacy 85.6 ml/min; Est GFR (African American) 105.3 ml/min; Est GFR (Non-African American) 90.8 ml/min; Globulin 2.8 gm/dl (2.5-4.0); Potassium 3.4 mmol/L (3.5-5.1)
[2023-08-25] MEDS ORDERED: dilTIAZem HCL 120 MG CAPCR PO SCH (14:00)
--- NOTE | 2023-08-25 15:09 | Hospitalist Progress Note ---
Date of Service August 25, 2023 Assessment & Plan (1) Acute hypoxic respiratory failure: Plan: developed acute hypoxic respiratory failure due to pulmonary edema, unknown EF, likely from ivf associated with surgery consider acute diastolic heart failure due to paroxysmal afib also given lasix dramatic improvement reduction in oxygen need. still with one liter required (2) A-fib: Plan: Paroxysmal A. fib patient with episode of tachycardia associate with uncontrolled A-fib. converted to nsr with diltiazem gtt and bolus afib since recurred and now started on po diltiazem extended release -surgery ok to resume Xarelto. history of TIA also continues atorvastatin (3) Acute cholecystitis: Plan: -CT abdomen showed cholelithiasis, right upper quadrant ultrasound showed acute cholecystitis. -Surgery consulted, s/p cholecystectomy 08/20/23 some persistent pain, that plus afib rechecked labs on 08/24, no change in wbc and lft are ok, not suspecting bile leak or infection at this time to spur on afib -Ceftriaxone continued.( also for uti ) Concern for anemia, ordered ct scan of abd. pelvis 07/23/23 no acute changes, pulmonary fluid overload suggested (4) UTI (urinary tract infection): Plan: -UA showing nitrates, leukocyte Estrace, and 4+ bacteria. grew E coli resistent to quinalonoes, -No current symptoms of UTI, though is on ceftriaxone as above for acute cholecystitis. complete 5 days Plan discharge depending on the resolution of the patient's hypoxemia and rate controlled afib , pt is considering rehab at this point Code status: Conditional chronic tremor h/o lumbar fusion Admission and Anticipated Discharge Date Admission Date: August 20, 2023 Subjective returns to afib RVR, she did experience palpitations wtih this did have improvement once again with diltiazem Physical Exam Physical Exam: pt is weakened and fatigued rapid irregular heart rate lungs are clear abd is tender in RUQ Results & Data Results & Data Vital Signs (Past 12 Hours) Vital Signs Temp Pulse Resp BP Pulse Ox O2 Del Method O2 Flow Rate 08/25/23 14:26 Room Air 08/25/23 11:35 97.9 F 105 H 1 L 108/64 91 Nasal Cannula 1 08/25/23 07:09 98.1 F 99 H 18 129/70 96 Nasal Cannula 1 08/25/23 03:18 98.6 F 103 H 18 119/84 96 Nasal Cannula 1 08/25/23 03:06 Nasal Cannula 1 Laboratory Results reviewed cbc reviewed chemistry reviewed lfts started new medication for afib PG Care Time/CCT Total # of Minutes Spent Total Time Spent with Patient: Total time spent is greater than 50% in coordination of care (as documented) at patient's floor/unit and/or counseling patient: Coding Level of Care Code 38776 SUB INP/OBS CARE 3/50MIN Diagnoses Acute hypoxic respiratory failure J96.01 A-fib I48.91 Acute cholecystitis K81.0 UTI (urinary tract infection) N39.0 Urinary tract infection type: site unspecified (4) UTI (urinary tract infection) Urinary tract infection type: site unspecified
[2023-08-25] MEDS: POTASSIUM CHLORIDE / WTR 10 MEQ/100 ML PLCT IV SCH (16:26)
--- NOTE | 2023-08-25 17:21 | XCELERA ---
[id number]
[2023-08-25] MEDS: MELATONIN 3 MG TAB PO SCH (20:47)
[2023-08-25] MEDS: POTASSIUM CHLORIDE CRTAB 20 MEQ TABCR PO STA (20:57)
[2023-08-26 07:50] LABS: Anion Gap 5 (3-11); BUN Creatinine Ratio 20.4 (10-20); Blood Urea Nitrogen 10 mg/dl (6-23); Calcium 8.5 mg/dl (8.6-10.3); Carbon Dioxide 31 mmol/L (21-32); Chloride 102 mmol/L (98-107); Creatinine Clr Calc Pharmacy 88.6 ml/min; Est GFR (African American) 106.6 ml/min; Glucose 118 mg/dl (70-99(Fasting)); Sodium 138 mmol/L (136-145)
[2023-08-26] MEDS: RIVAROXABAN 20 MG TAB PO SCH (08:37)
--- NOTE | 2023-08-26 16:26 | Discharge Summary ---
Discharge Summary Date of Service August 26, 2023 Notes For Next Care Provider Patient insisted on a new medication (diltiazem 120) to help control her intermittent atrial fibrillation. She has recovered well from cholecystectomy tolerating her diet having very little pain control. She did have a postoperative CT scan which now concern for infection or bile leak. Laboratories also did not suggest any bile leak. Her etcher photoengraving is Dr. Patel was contacted and the office is aware that she is an additional medication for atrial fibrillation rate control Admission HPI Per Admitting Provider Patient is an 78-year-old female from the [facility] who presents to the hospital with acute cholecystitis. Patient has a past medical history of A-fib on Xarelto, TIA, essential tremor, hysterectomy, lumbar fusion surgery. She came to the area for graduation. She states that she felt crummy last couple days and that Monday evening at 8 PM she started to have sharp right upper quadrant abdominal pain that radiated to her back. She also started to have some nausea. She vomited once in the ED. She denies any fevers, chills, or recent illness. Denies any dysuria. Her most recent dose of Xarelto was in the p.m. on 08/18/2023. In the ED: CBC, CMP, and lipase were all benign. UA showed nitrates, leukocyte esterase, and 4+ bacteria. CT abdomen pelvis showed cholelithiasis and diverticulosis without acute diverticulitis. Right upper quadrant ultrasound showed acute cholecystitis. Surgery was consulted, will evaluate for possible cholecystectomy this admission. Principal Dx & Hospital Course #1 = Principal Diagnosis (1) Acute hypoxic respiratory failure: developed acute hypoxic respiratory failure due to pulmonary edema, unknown EF, likely from ivf associated with surgery consider acute diastolic heart failure due to paroxysmal afib also given lasix dramatic improvement reduction in oxygen need. Able to be tapered off oxygen and will be discharged without oxygen requirement (2) A-fib: Paroxysmal A. fib patient with episode of tachycardia associate with uncontrolled A-fib. afib has been recurrent and now started on po diltiazem extended release with good rate control, 120mg will be continued at time of discharge She has not converted to normal sinus rhythm at this time. -surgery ok to resume Xarelto. history of TIA also continues atorvastatin (3) Acute cholecystitis: -CT abdomen showed cholelithiasis, right upper quadrant ultrasound showed acute cholecystitis. -Surgery consulted, s/p cholecystectomy 08/20/23 some persistent pain, that plus afib rechecked labs on 08/24, no change in wbc and lft are ok, not suspecting bile leak or infection at this time to spur on afib -Ceftriaxone completed (also for uti ) Concern for anemia, ordered ct scan of abd. pelvis 07/23/23 no acute changes, pulmonary fluid overload suggested (4) UTI (urinary tract infection): -UA showing nitrates, leukocyte Estrace, and 4+ bacteria. grew E coli resistent to quinalonoes, -No current symptoms of UTI, though is on ceftriaxone as above for acute cholecystitis. complete 5 days Plan Patient was offered rehab stay at a local rehab family elected to take the [facility] area Code status: Conditional chronic tremor h/o lumbar fusion Discharge Exam Awake alert appropriate. Looking and feeling much better. Cardiac rate is controlled in the 80s and 90s but remains in A-fib and is irregular no murmurs are heard Lungs are clear without wheezes or crackles Abdomen still with some minor right upper quadrant tenderness Updated Medication List Medication Instructions Recorded Confirmed Type alendronate 70 mg tablet 70 mg PO WK 08/20/23 08/20/23 History atorvastatin 10 mg tablet 10 mg PO QAM 08/20/23 08/20/23 History cholecalciferol (vitamin D3) 50 100 mcg PO QAM 08/20/23 08/20/23 History mcg (2,000 unit) tablet (Vitamin D3) cyanocobalamin (vitamin B-12) 1,000 mcg PO QAM 08/20/23 08/20/23 History 1,000 mcg tablet (Vitamin B-12) cyclobenzaprine 10 mg tablet 5 - 10 mg PO .NIGHTLY PRN as 08/20/23 08/20/23 History directed folic acid 1 mg tablet 1 mg PO QAM 08/20/23 08/20/23 History ipratropium bromide 42 mcg (0.06 2 spray intranasal QAM 08/20/23 08/20/23 History %) nasal spray melatonin 1 mg tablet 1 mg PO HS 08/20/23 08/20/23 History methotrexate sodium 2.5 mg tablet 15 mg PO WK 08/20/23 08/20/23 History prednisolone acetate 1 % eye 1 drp ophthalmic (eye) Q OTHER DAY 08/20/23 08/20/23 History drops,suspension primidone 250 mg tablet 250 mg PO QPM 08/20/23 08/20/23 History primidone 50 mg tablet 50 mg PO QAM 08/20/23 08/20/23 History rivaroxaban 20 mg tablet (Xarelto) 20 mg PO QPM 08/20/23 08/20/23 History sertraline 100 mg tablet 100 mg PO QAM 08/20/23 08/20/23 History diltiazem HCl 120 mg 120 mg PO DAILY #30 caps 08/26/23 Rx capsule,extended release 24 hr (Cardizem CD) propranolol 80 mg capsule,24 160 mg (2 x 80 mg) PO QAM #0 caps 08/26/23 08/20/23 Rx hr,extended release Hospital Stay Data Consultations 08/20/23 03:47 ED Decision to Admit Stat 08/20/23 05:19 Consult General Surgery Routine Procedures Performed Operation Date: 08/20/23 12:00 Actual Procedures p Laparoscopic Cholecystectomy(Not Applicable) - Jeffry Dubon, Diagnostic Imagining Performed 08/19/23 23:19 CT Abd and Pelvis [CT abd pelvis IV con only] Stat 08/20/23 01:34 US gallbladder Stat 08/22/23 13:59 CT abd pelvis wo con Routine Pending Results Patient Have Any Pending Studies at Discharge: Yes Discharge Instructions Given to Patient (Per Discharging Provider) You have skin glue over your incisions called dermabond. you may shower with this on. It will tend to dissolve and fall off within a couple weeks. Do not pick at the skin glue Total Time Total Time Spent Total Time Spent (In Minutes): It required greater than 30 minutes to prepare this patient for discharge. Coding Level of Care Code 44489 INP/OBS DISCH >30 MIN Diagnoses Acute hypoxic respiratory failure J96.01 A-fib I48.91 Acute cholecystitis K81.0 UTI (urinary tract infection) N39.0 Urinary tract infection type: site unspecified
== END 2023-08-26 13:28 | disposition home or self-care (01) | DRG 417 ==
LOC: ED 21:29 → SUATTDRO 08-20 04:35 → EDINP 08-20 04:35 → 2S 08-20 16:48